=== PATIENT | female | born 1985 | race Caucasian/White ===

== ENCOUNTER 2017-05-19 13:57 | Outpatient (CLI) | payer OTHER | END 2017-05-19 13:58 | disposition home or self-care (01) | LOC: SC 13:57 | PROVIDERS: ATTEND Internal Medicine Pulmonary Disease | DX: G47.00 Insomnia, unspecified (principal); E66.9 Obesity, unspecified; Z68.34 Body mass index [BMI] 34.0-34.9, adult | CPT/HCPCS: 99203; 99212 ==

== ENCOUNTER 2017-06-11 21:24 | Outpatient (CLI) | payer OTHER | END 2017-06-11 21:25 | disposition home or self-care (01) | LOC: SC 21:24 | PROVIDERS: ATTEND Internal Medicine Pulmonary Disease | DX: G47.61 Periodic limb movement disorder (principal); R06.83 Snoring | CPT/HCPCS: 95810 ==

== ENCOUNTER 2017-07-29 09:29 | Outpatient (CLI) | payer OTHER | END 2017-07-29 09:30 | disposition home or self-care (01) | LOC: SC 09:29 | PROVIDERS: ATTEND Nurse Practitioner Family | DX: G47.61 Periodic limb movement disorder (principal); R06.83 Snoring | CPT/HCPCS: 99212; 99214 ==

== ENCOUNTER 2019-01-04 19:18 | Emergency (ER) | payer OTHER ==
[2019-01-04 19:25] VITALS: BP 127/72
--- NOTE | 2019-01-04 20:03 | ED Physician Documentation ---
PD HPI URI - Stated complaint Stated Complaint: COUGH - Chief complaint Chief Complaint: Resp - History obtained from History obtained from: Patient - History of Present Illness Timing - onset: Last night (Sick since last night with severe body aches, nonproductive cough, fevers and chills and runny nose and mild sore throat.) Review of Systems Constitutional: reports: Fever, Chills, Myalgias, Fatigue Nose: reports: Rhinorrhea / runny nose Throat: reports: Sore throat Respiratory: reports: Cough. denies: Dyspnea GI: denies: Abdominal Pain, Nausea, Vomiting PD PAST MEDICAL HISTORY - Past Medical History Past Medical History: No - Past Surgical History Past Surgical History: No - Present Medications Home Medications: Ambulatory Orders Medication Instructions Recorded Confirmed Benzonatate [Tessalon Perle] 100 - 200 mg PO TID PRN #30 capsule 01/04/19 Hydrocodone/Acetaminophen 1 - 2 each PO Q6H PRN #10 tablet 01/04/19 [Hydrocodon-Acetaminophen 5-325] Ibuprofen [Motrin] 800 mg PO Q8H PRN #30 tablet 01/04/19 Oseltamivir [Tamiflu] 75 mg PO BID #10 capsule 01/04/19 - Allergies Allergies/Adverse Reactions: Allergies Allergy/AdvReac Type Severity Reaction Status Date / Time No Known Drug Allergies Allergy Verified 01/04/19 19:24 - Social History Does the pt smoke?: Yes Smoking Status: Current every day smoker Does the pt drink ETOH?: No Does the pt have substance abuse?: No - Immunizations Immunizations are current?: No Immunizations: TDAP current <10years PD ED PE NORMAL - Vitals Vital signs reviewed: Yes - General General: Alert and oriented X 3, No acute distress - HEENT HEENT: Ears normal, Pharynx benign - Neck Neck: Supple, no meningeal sign, No bony TTP - Cardiac Cardiac: RRR, No murmur - Respiratory Respiratory: No respiratory distress, Clear bilaterally - Abdomen Abdomen: Non tender - Derm Derm: No rash - Neuro Neuro: Alert and oriented X 3 - Psych Psych: Normal mood, Normal affect Results - Vitals Vitals: Vital Signs - 24 hr 01/04/19 19:21 Temperature 37.2 C Heart Rate 89 Respiratory 16 Rate Blood Pressure 127/72 O2 Saturation 99 Oxygen O2 Source Room air PD MEDICAL DECISION MAKING - ED course ED course: This is a 33-year-old woman who has signs and symptoms of influenza. Given the low sensitivity of the nasal test and current outbreak I do not think confirmatory testing is necessary. Departure - Departure Disposition: 01 Home, Self Care Clinical Impression: Influenza Condition: Good Record reviewed to determine appropriate education?: Yes Instructions: ED Flu, Medication: Tamiflu (Oseltamivir) Prescriptions: Benzonatate [Tessalon Perle] 100 - 200 mg PO TID PRN #30 capsule PRN Reason: Cough Hydrocodone/Acetaminophen [Hydrocodon-Acetaminophen 5-325] 1 - 2 each PO Q6H PRN #10 tablet PRN Reason: pain Ibuprofen [Motrin] 800 mg PO Q8H PRN #30 tablet PRN Reason: PAIN &/OR FEVER Oseltamivir [Tamiflu] 75 mg PO BID #10 capsule Comments: Should be improving in 3-5 days, return if not or if worsening. Follow-up with your physician as needed. Forms: Activity restrictions
[2019-01-04] MEDS: IBUPROFEN 800 MG TABLET PO STA (20:07)
[2019-01-04] MEDS: OSELTAMIVIR 75 MG CAPSULE PO STA (20:07)
[2019-01-04] MEDS: HYDROcod/ACETAM 5/325 MG TABLET PO STA (20:07)
== END 2019-01-04 20:09 | disposition home or self-care (01) ==
LOC: ED 19:18
DX: J11.1 Influenza due to unidentified influenza virus with other respiratory manifestations (principal); F17.200 Nicotine dependence, unspecified, uncomplicated
CPT/HCPCS: 99283; A9270

== ENCOUNTER 2019-08-11 20:22 | Emergency (ER) | payer OTHER ==
[2019-08-11 20:29] VITALS: BP 129/64
--- NOTE | 2019-08-11 20:50 | ED Physician Documentation ---
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.) Similar symptoms before: Has not had sx before Recently seen: Not recently seen Review of Systems Constitutional: denies: Fever, Chills Nose: denies: Rhinorrhea / runny nose, Congestion Throat: denies: Sore throat Cardiac: denies: Chest pain / pressure Respiratory: denies: Cough GI: denies: Abdominal Pain, Nausea, Vomiting, Diarrhea : denies: Dysuria, Frequency Skin: denies: Rash, Lesions Neurologic: denies: Focal weakness, Numbness, Near syncope PD PAST MEDICAL HISTORY - Past Medical History Past Medical History: No Musculoskeletal: None - Past Surgical History Past Surgical History: No - Present Medications Home Medications: Ambulatory Orders Medication Instructions Recorded Confirmed Benzonatate [Tessalon Perle] 100 - 200 mg PO TID PRN #30 capsule 01/04/19 Hydrocodone/Acetaminophen 1 - 2 each PO Q6H PRN #10 tablet 01/04/19 [Hydrocodon-Acetaminophen 5-325] Ibuprofen [Motrin] 800 mg PO Q8H PRN #30 tablet 01/04/19 Oseltamivir [Tamiflu] 75 mg PO BID #10 capsule 01/04/19 Naproxen 500 mg PO BID #20 tablet 08/11/19 Tizanidine HCl 4 mg PO TID PRN #25 capsule 08/11/19 Tramadol HCl 50 mg PO Q6H PRN #20 tablet 08/11/19 - Allergies Allergies/Adverse Reactions: Allergies Allergy/AdvReac Type Severity Reaction Status Date / Time No Known Drug Allergies Allergy Verified 08/11/19 20:29 - Social History Does the pt smoke?: Yes Smoking Status: Current every day smoker Does the pt drink ETOH?: No Does the pt have substance abuse?: No - Immunizations Immunizations are current?: No Immunizations: TDAP current <10years - POLST Patient has POLST: No PD ED PE NORMAL - Vitals Vital signs reviewed: Yes - General General: Alert and oriented X 3, No acute distress, Well developed/nourished - Cardiac Cardiac: RRR, No murmur - Respiratory Respiratory: Clear bilaterally - Abdomen Abdomen: Soft, Non tender - Back Back: No CVA TTP - Derm Derm: Normal color, No rash - Neuro Neuro: Alert and oriented X 3, No motor deficit, No sensory deficit, Other (normal knee reflexes) Results - Vitals Vitals: Vital Signs - 24 hr 08/11/19 08/11/19 20:28 21:35 Temperature 35.8 C L Heart Rate 79 75 Respiratory 19 12 Rate Blood Pressure 129/64 129/64 O2 Saturation 100 100 Oxygen O2 Source Room air PD MEDICAL DECISION MAKING - ED course Complexity details: considered differential (no red flags, and seems muscular pain presume related to repetitive use at work. ), d/w patient Departure - Departure Disposition: 01 Home, Self Care Clinical Impression: Repetitive strain injury of lower back Qualifiers: Encounter type: initial encounter Qualified Code(s): S39.012A - Strain of muscle, fascia and tendon of lower back, initial encounter Condition: Stable Record reviewed to determine appropriate education?: Yes Instructions: ED Sprain Strain Lumbar Prescriptions: Naproxen 500 mg PO BID #20 tablet Tizanidine HCl 4 mg PO TID PRN #25 capsule PRN Reason: Spasms Tramadol HCl 50 mg PO Q6H PRN #20 tablet PRN Reason: Pain Comments: Heat and gentle stretching. Stretching and light aerobic like treadmill are fine. No repetitive bending or heavy lifting for a week or so. 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 Use naproxen anti-inflammatory twice daily for the next 7 to 10 days. Add tizanidine muscle relaxant 3-4 times a day for spasms and stiffness. Add Tylenol every the 6 hours if needed for pain and tramadol if needed for worse pain. Physical treatment such as heat and stretching as well as massage and chiropractic are fine and often helpful. Recheck if not improved over the next several days to week. Sometimes this will persist with some degree of soreness for 2 or 3 weeks or more. Follow-up with your primary care if not better over the next week though as other treatments can be added. Forms: Activity restrictions Discharge Date/Time: 08/11/19 21:36
[2019-08-11] MEDS ORDERED: METHOCARBAMOL 500 MG TABLET PO STA (21:16)
[2019-08-11] MEDS ORDERED: traMADol 50 MG TABLET PO STA (21:16)
[2019-08-11] MEDS ORDERED: CHERRY SYRUP 10 ML UDC PO ONE (21:16)
[2019-08-11] MEDS ORDERED: NAPROXEN 250 MG TABLET PO STA (21:16)
[2019-08-11] MEDS ORDERED: DEXAMETHASONE 10 MG/ML VIAL PO STA (21:16)
== END 2019-08-11 21:36 | disposition home or self-care (01) ==
LOC: ED 20:22
DX: S39.012A Strain of muscle, fascia and tendon of lower back, initial encounter (principal); F17.200 Nicotine dependence, unspecified, uncomplicated; X58.XXXA Exposure to other specified factors, initial encounter
CPT/HCPCS: 99283; 99284; A9270

== ENCOUNTER 2021-03-23 20:34 | Emergency (ER) | payer OTHER ==
--- OUTSIDE RECORDS SUMMARY | 2021-03-23 20:56 | EXTERNAL MEDICAL SUMMARY RPT | Continuity of Care Document ---
:1985 Demographics Phone Unavailable Preferred Language Unknown Marital Status Unknown Denominational Affiliation Unknown Race Unknown Ethnic Group Unknown Author Organization [place] Address [address] [phone] Phone Social History date description facility [phone]
--- NOTE | 2021-03-23 21:16 | ED Physician Documentation ---
PD HPI UPPER EXT INJURY - Stated complaint Stated Complaint: RT ARM PX & UNABLE TO MOVE PROPERLY - Chief complaint Chief Complaint: Ext Problem - History obtained from History obtained from: Patient - History of Present Illness Location: Right, Wrist - Additonal information Additional information: Developed medial right wrist pain today, no specific injury. It hurts to move. Review of Systems Constitutional: reports: Reviewed and negative Eyes: reports: Reviewed and negative Ears: denies: Loss of hearing, Ear pain Nose: denies: Rhinorrhea / runny nose, Congestion PD PAST MEDICAL HISTORY - Past Medical History Musculoskeletal: None - Past Surgical History Past Surgical History: No - Allergies Allergies/Adverse Reactions: Allergies Allergy/AdvReac Type Severity Reaction Status Date / Time No Known Drug Allergies Allergy Verified 03/23/21 20:39 - Social History Does the pt smoke?: Yes Smoking Status: Current every day smoker Does the pt drink ETOH?: No Does the pt have substance abuse?: No - Immunizations Immunizations are current?: No Immunizations: TDAP current <10years - POLST Patient has POLST: No PD ED PE NORMAL - Vitals Vital signs reviewed: Yes - General General: Alert and oriented X 3, No acute distress - HEENT HEENT: PERRL, EOMI - Extremities Extremities: Other (Tender along the ulnar side of the wrist and pain with eversion of the wrist. Flexion and extension is relatively painless. No tenderness at the elbow.) - Neuro Neuro: Alert and oriented X 3, Normal speech Results - Vitals Vitals: Vital Signs - 24 hr 03/23/21 20:41 Temperature 37.0 C Heart Rate 70 Respiratory 18 Rate Blood Pressure 140/82 H O2 Saturation 100 Oxygen O2 Source Room air PD MEDICAL DECISION MAKING - ED course ED course: This young lady has a ulnar side tendinitis of the right wrist. She is placed in a splint for comfort and advised on rest and ice. She declined prescription pain medication. Departure - Departure Disposition: 01 Home, Self Care Clinical Impression: Right wrist tendinitis Condition: Good Record reviewed to determine appropriate education?: Yes Instructions: Tendonitis and Tenosynovitis Comments: Ibuprofen as needed for pain, elevate. Keep the splint on for comfort. Recheck with your doc in 1 week Forms: Activity restrictions
[2021-03-23 21:29] VITALS: BP 126/69
== END 2021-03-23 21:30 | disposition home or self-care (01) ==
LOC: ED 20:34
DX: M77.8 Other enthesopathies, not elsewhere classified (principal); M25.531 Pain in right wrist; F17.200 Nicotine dependence, unspecified, uncomplicated
CPT/HCPCS: 99282; 99283

== ENCOUNTER 2021-06-18 19:29 | Emergency (ER) | payer OTHER ==
[2021-06-18] MEDS ORDERED: KETOROLAC 15 MG/ML VIAL IM STA (19:46)
[2021-06-18] MEDS ORDERED: HYDROcod/ACETAM 5/325 MG TABLET PO STA (19:46)
--- NOTE | 2021-06-18 19:48 | ED Physician Documentation ---
PD HPI BACK PAIN - Stated complaint Stated Complaint: BACK PAIN - Chief complaint Chief Complaint: Back Pain - History obtained from History obtained from: Patient - Additional information Additional information: 4 days of left low back pain radiating into the left buttock with occasional numbness of the left leg. No saddle anesthesia, incontinence, or fevers. No IV drug use. Review of Systems Ten Systems: 10 systems reviewed and negative Constitutional: reports: Reviewed and negative PD PAST MEDICAL HISTORY - Past Medical History Past Medical History: Yes Musculoskeletal: None, Chronic back pain - Past Surgical History Past Surgical History: No - Present Medications Home Medications: Ambulatory Orders Medication Instructions Recorded Confirmed Cyclobenzaprine [Flexeril] 10 mg PO TID PRN #20 tablet 06/18/21 HYDROcod/ACETAM 5/325 [[place] 5/325] 1 - 2 tab PO Q6H PRN #15 tablet 06/18/21 - Allergies Allergies/Adverse Reactions: Allergies Allergy/AdvReac Type Severity Reaction Status Date / Time No Known Drug Allergies Allergy Verified 06/18/21 19:31 - Social History Does the pt smoke?: No Smoking Status: Never smoker Does the pt drink ETOH?: No Does the pt have substance abuse?: No - Immunizations Immunizations are current?: Yes Immunizations: TDAP current <10years - POLST Patient has POLST: No PD ED PE NORMAL - Vitals Vital signs reviewed: Yes - General General: Alert and oriented X 3, No acute distress - Abdomen Abdomen: Soft, Non tender - Back Back: No spinal TTP (Muscular tenderness of the left low back, no midline spinal tenderness), Other (The patient has equal and normal Achilles and patellar reflexes bilaterally. Normal sensation in all areas of the legs. Patient denies saddle anesthesia. Normal strength in flexion-extension at the ankles, knees, and flexion of the hips.) - Extremities Extremities: No edema, No calf tenderness / cord - Neuro Neuro: Alert and oriented X 3, Normal speech Results - Vitals Vitals: Vital Signs - 24 hr 06/18/21 19:32 Temperature 36.5 C Heart Rate 82 Respiratory 16 Rate Blood Pressure 142/73 H O2 Saturation 98 Oxygen O2 Source Room air PD MEDICAL DECISION MAKING - ED course ED course: This patient has seemingly uncomplicated musculoskeletal back pain. The patient has no "red flags." Specifically denies IV drug use, fevers, incontinence, saddle anesthesia. Spinal epidural abscess was considered, given that the patient has no fever, is not diabetic, has no spinal tenderness, does not use IV drugs, and has no bilateral neurologic symptoms, the diagnosis of spinal epidural abscess is considered exceedingly unlikely. I am prescribing a short course of short-acting opioid pain medication for this patient. 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 I have discussed that the opioids are for short term therapy only, and will not be refilled from the ED. Departure - Departure Disposition: 01 Home, Self Care Clinical Impression: Sciatica Qualifiers: Laterality: left Qualified Code(s): M54.32 - Sciatica, left side Condition: Good Record reviewed to determine appropriate education?: Yes Instructions: ED Sciatica Prescriptions: Cyclobenzaprine [Flexeril] 10 mg PO TID PRN #20 tablet PRN Reason: Spasms HYDROcod/ACETAM 5/325 [[place] 5/325] 1 - 2 tab PO Q6H PRN #15 tablet PRN Reason: Pain Comments: Call your doctor to arrange a follow-up appointment, make the next available appointment. In the interim, return anytime if worse or if new symptoms develop. I am prescribing a short course of narcotic pain medication for you. These are potentially dangerous and addictive medications that should be used carefully. These medications may constipate you. Take an [id number] stool softener (docusate) twice daily with plenty of water while taking these medications. If you go 24 hours without a bowel movement, take [id number] miralax, per package instructions. Do not drink or drive while taking these medications. If you received narcotic or sedating medications while in the emergency department, do not drive for 24 hours. Store this medication in a safe, secure place and out of reach of children. It is a violation of federal law to give or sell this medication to another person or to use in a manner other than prescribed. The ED will not refill narcotic prescriptions, including prescriptions lost or stolen. To dispose of unwanted medications: 1. [facility] at [address] [facility] in [place] has a medication drop box. They accept prescription medications (in pill form) Friday through Friday 9:00 a.m. to 5:00 p.m. 2. The [facility] accepts prescription medications (in pill form only) for disposal year round. Call for more information. 3. Contact the [facility] for the next [facility] sponsored prescription drug collection event. , [phone], or [phone]; Note that many narcotic pain relievers also contain Tylenol/acetaminophen. Please ensure that your total dose of acetaminophen from all sources does not exceed 3 g (3000 mg) per day. Forms: Activity restrictions
[2021-06-18 20:03] VITALS: BP 131/81
== END 2021-06-18 20:07 | disposition home or self-care (01) ==
LOC: ED 19:29
DX: M54.42 Lumbago with sciatica, left side (principal)
CPT/HCPCS: 96372; 99283; 99284; A9270

== ENCOUNTER 2021-07-27 13:25 | Emergency (ER) | payer OTHER ==
[2021-07-27 13:52] VITALS: BP 132/74
[2021-07-27] MEDS ORDERED: CYCLOBENZAPRINE 10 MG TABLET PO STA (14:04)
[2021-07-27] MEDS ORDERED: HYDROcod/ACETAM 5/325 MG TABLET PO STA (14:04)
--- NOTE | 2021-07-27 14:06 | ED Physician Documentation ---
PD HPI BACK PAIN - Stated complaint Stated Complaint: LOWER BACK PX - Chief complaint Chief Complaint: Back Pain - History obtained from History obtained from: Patient - Additional information Additional information: 2 months of left-sided low back pain radiating towards the left hip. She denies weakness, numbness, tingling, saddle anesthesia, fevers, IV drug use. No weakness. Seen here and got relief from hydrocodone and Flexeril. [place] Review of Systems Constitutional: reports: Reviewed and negative Eyes: reports: Reviewed and negative Ears: reports: Reviewed and negative Nose: reports: Reviewed and negative Throat: reports: Reviewed and negative PD PAST MEDICAL HISTORY - Past Medical History Musculoskeletal: None, Chronic back pain - Past Surgical History Past Surgical History: No - Present Medications Home Medications: Ambulatory Orders Medication Instructions Recorded Confirmed Cyclobenzaprine [Flexeril] 10 mg PO TID PRN #20 tablet 06/18/21 HYDROcod/ACETAM 5/325 [[place] 5/325] 1 - 2 tab PO Q6H PRN #15 tablet 06/18/21 Cyclobenzaprine [Flexeril] 10 mg PO TID PRN #20 tablet 07/27/21 HYDROcod/ACETAM 5/325 [[place] 5/325] 1 - 2 tab PO Q6H PRN #15 tablet 07/27/21 - Allergies Allergies/Adverse Reactions: Allergies Allergy/AdvReac Type Severity Reaction Status Date / Time No Known Drug Allergies Allergy Verified 07/27/21 13:52 - Social History Does the pt smoke?: No Smoking Status: Never smoker Does the pt drink ETOH?: No Does the pt have substance abuse?: No - Immunizations Immunizations are current?: Yes Immunizations: TDAP current <10years - POLST Patient has POLST: No PD ED PE NORMAL - Vitals Vital signs reviewed: Yes - General General: Alert and oriented X 3, No acute distress - HEENT HEENT: PERRL, EOMI - Neck Neck: Supple, no meningeal sign, No bony TTP - Extremities Extremities: Other (Tender to the left sciatic notch, diminished almost absent left L4/L5 reflex, otherwise strength and sensation are symmetric throughout the lower extremities.) - Neuro Neuro: Alert and oriented X 3, Normal speech Results - Vitals Vitals: Vital Signs - 24 hr 07/27/21 13:48 Temperature 36.6 C Heart Rate 88 Respiratory 15 Rate Blood Pressure 132/74 H O2 Saturation 99 Oxygen O2 Source Room air PD MEDICAL DECISION MAKING - ED course ED course: This patient has seemingly uncomplicated musculoskeletal back pain. The patient has no "red flags." Specifically denies IV drug use, fevers, incontinence, saddle anesthesia. Spinal epidural abscess was considered, given that the patient has no fever, is not diabetic, has no spinal tenderness, does not use IV drugs, and has no bilateral neurologic symptoms, the diagnosis of spinal epidu ral abscess is considered exceedingly unlikely. I am prescribing a short course of short-acting opioid pain medication for this patient. 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 I have discussed that the opioids are for short term therapy only, and will not be refilled from the ED. Departure - Departure Disposition: 01 Home, Self Care Clinical Impression: Sciatica Qualifiers: Laterality: left Qualified Code(s): M54.32 - Sciatica, left side Condition: Good Record reviewed to determine appropriate education?: Yes Instructions: ED Sciatica Prescriptions: Cyclobenzaprine [Flexeril] 10 mg PO TID PRN #20 tablet PRN Reason: Spasms HYDROcod/ACETAM 5/325 [[place] 5/325] 1 - 2 tab PO Q6H PRN #15 tablet PRN Reason: Pain Comments: As discussed based on exam you have a radiculopathy of the left L4-L5 nerve root, likely due to disc herniation at that level. [place]. Given how long its been going on, you do fit the criteria for MRI, but she may need to go through physical therapy first. Return for new or worsening symptoms. Prescription sent electronically to [facility] pharmacy. I am prescribing a short course of narcotic pain medication for you. These are potentially dangerous and addictive medications that should be used carefully. These medications may constipate you. Take an jbeq-lct-vyipyxz stool softener (docusate) twice daily with plenty of water while taking these medications. If you go 24 hours without a bowel movement, take nsfw-ecp-fdttnry miralax, per package instructions. Do not drink or drive while taking these medications. If you received narcotic or sedating medications while in the emergency department, do not drive for 24 hours. Store this medication in a safe, secure place and out of reach of children. It is a violation of federal law to give or sell this medication to another person or to use in a manner other than prescribed. The ED will not refill narcotic prescriptions, including prescriptions lost or stolen. To dispose of unwanted medications: 1. [facility] at [address] in [place] has a medication drop box. They accept prescription medications (in pill form) Friday through Friday 9:00 a.m. to 5:00 p.m. 2. The [facility] accepts prescription medications (in pill form only) for disposal year round. Call for more information. 3. Contact the [facility] for the next [facility] sponsored prescription drug collection event. , [phone], or [phone]; Note that many narcotic pain relievers also contain Tylenol/acetaminophen. Please ensure that your total dose of acetaminophen from all sources does not exceed 3 g (3000 mg) per day. Forms: Activity restrictions
== END 2021-07-27 14:15 | disposition home or self-care (01) ==
LOC: ED 13:25
DX: M54.32 Sciatica, left side (principal)
CPT/HCPCS: 99282; 99283; A9270

== ENCOUNTER 2022-01-22 15:43 | Emergency (ER) | payer OTHER ==
[2022-01-22 15:50] VITALS: BP 132/73
[2022-01-22] MEDS ORDERED: oxyCODONE 5 MG TABLET PO STA (16:46)
--- NOTE | 2022-01-22 16:47 | ED Physician Documentation ---
PD HPI BACK PAIN - Stated complaint Stated Complaint: LOW BACK PX - Chief complaint Chief Complaint: Back Pain - Additional information Additional information: Patient is 36-year-old female presenting to the emergency department with left low back pain. Endorses for chronic back pain at home worse x2-3 days. Reports works on her feet on the [employer]. Reports that she is not been taking any medication but does have some muscle relaxers that she occasionally uses for sleep. Denies any fever, chills, trauma, saddle paresthesia, bowel or bladder incontinence, lower extremity weakness. Review of Systems Unable to obtain: Unresponsive Ten Systems: 10 systems reviewed and negative Constitutional: denies: Fever Eyes: denies: Loss of vision Ears: denies: Loss of hearing Nose: denies: Rhinorrhea / runny nose Throat: denies: Dental pain / toothache Cardiac: denies: Chest pain / pressure GI: denies: Abdominal Pain : denies: Dysuria Musculoskeletal: reports: Back pain PD PAST MEDICAL HISTORY - Past Medical History Musculoskeletal: None, Chronic back pain - Past Surgical History Past Surgical History: No - Present Medications Home Medications: Ambulatory Orders Medication Instructions Recorded Confirmed Cyclobenzaprine [Flexeril] 10 mg PO TID PRN #20 tablet 06/18/21 HYDROcod/ACETAM 5/325 [Gary 5/325] 1 - 2 tab PO Q6H PRN #15 tablet 06/18/21 Cyclobenzaprine [Flexeril] 10 mg PO TID PRN #20 tablet 07/27/21 HYDROcod/ACETAM 5/325 [Gary 5/325] 1 - 2 tab PO Q6H PRN #15 tablet 07/27/21 Acetaminophen [Tylenol] 650 mg PO Q6H PRN #30 tablet 01/22/22 Ibuprofen [Motrin] 800 mg PO Q8H PRN #30 tablet 01/22/22 Lidocaine Patch 5% [Lidoderm Patch] 1 patch TOP DAILY PRN #10 patch 01/22/22 methocarbamoL [Robaxin] 500 mg PO Q6H PRN #20 tablet 01/22/22 - Allergies Allergies/Adverse Reactions: Allergies Allergy/AdvReac Type Severity Reaction Status Date / Time No Known Drug Allergies Allergy Verified 01/22/22 15:50 - Social History Does the pt smoke?: No Smoking Status: Never smoker Does the pt drink ETOH?: No Does the pt have substance abuse?: No - Immunizations Immunizations are current?: Yes Immunizations: TDAP current <10years - POLST Patient has POLST: No PD ED PE NORMAL - General General: Alert and oriented X 3 - HEENT HEENT: Atraumatic - Neck Neck: Supple, no meningeal sign - Respiratory Respiratory: No respiratory distress - Back Back: No CVA TTP, No spinal TTP, Other (Left low paraspinal muscle tenderness to palpation) Results - Vitals Vitals: Vital Signs - 24 hr 01/22/22 15:47 Temperature 35.9 C L Heart Rate 82 Respiratory 16 Rate Blood Pressure 132/73 H O2 Saturation 99 Oxygen O2 Source Room air PD MEDICAL DECISION MAKING - ED course ED course: Patient presents with acute on chronic low back pain. Afebrile, hemodynamically stable. No red flags in history. Patient noted to be able to ambulate in the department with ease. No spinal tenderness to palpation but some left lower Paraspinal muscle tenderness to palpation. Given medication for symptomatic management here in the department. Will send medications for symptomatic management to her preferred pharmacy. Encourage careful follow-up with primary care or return to the emergency department for new or worsening symptoms Departure - Departure Disposition: 01 Home, Self Care Clinical Impression: Back pain Instructions: ED Back Care Tips Prescriptions: Lidocaine Patch 5% [Lidoderm Patch] 1 patch TOP DAILY PRN #10 patch PRN Reason: pain Ibuprofen [Motrin] 800 mg PO Q8H PRN #30 tablet PRN Reason: PAIN &/OR FEVER methocarbamoL [Robaxin] 500 mg PO Q6H PRN #20 tablet PRN Reason: muscle spasm Acetaminophen [Tylenol] 650 mg PO Q6H PRN #30 tablet PRN Reason: PRN PAIN &/OR FEVER Comments: Thank you for allowing us to care for you today at [facility]. [facility]. Please drink plenty of fluids. I recommend activity as tolerated. Complete inactivity can make back pain worse. Please follow-up with your primary care doctor soon as able. If at any time you have any new or worsening symptoms such as worsening pain, fever, numbness around the anus or genitalia, loss or bowel or bladder control or weakness in your legs, please don't hesitate to return. Discharge Date/Time: 01/22/22 17:05
== END 2022-01-22 17:05 | disposition home or self-care (01) ==
LOC: ED 15:43
DX: M54.50 Low back pain, unspecified (principal)
CPT/HCPCS: 99283; A9270

== ENCOUNTER 2022-03-04 15:43 | Emergency (ER) | payer OTHER ==
[2022-03-04 15:57] VITALS: BP 131/78
--- NOTE | 2022-03-04 16:14 | ED Physician Documentation ---
History of Present Illness - Stated complaint Stated Complaint: ABD PX,NAUSEA,DIZZINESS - Chief complaint Chief Complaint: Abd Pain - History obtained from History obtained from: Patient - History of Present Illness Timing: How many days ago (4) Pain level max: 5 Pain level now: 5 - Additonal information Additional information: Patient is a 37-year-old female who presents to the emergency department complaint of bilateral flank pain. This is been ongoing for the past several days. Has had nausea as well. She states similar to prior UTIs. She states she normally does not have dysuria and frequency with her UTIs, rather she states she has nausea and flank pain. Nothing seems to make it better or worse. No fevers. No chills. Denies any possibility of . Is not breast- feeding. Review of Systems Constitutional: denies: Fever, Chills Throat: denies: Sore throat Cardiac: denies: Chest pain / pressure, Palpitations Respiratory: denies: Dyspnea, Cough GI: denies: Vomiting, Diarrhea, Hematemesis, Bloody / black stool : denies: Dysuria, Frequency, Hesitancy, Now EGA Skin: denies: Rash Musculoskeletal: denies: Neck pain, Back pain PD PAST MEDICAL HISTORY - Past Medical History Past Medical History: Yes Musculoskeletal: None, Chronic back pain - Past Surgical History Past Surgical History: No - Present Medications Home Medications: Ambulatory Orders Medication Instructions Recorded Confirmed Cyclobenzaprine [Flexeril] 10 mg PO TID PRN #20 tablet 06/18/21 HYDROcod/ACETAM 5/325 [[place] 5/325] 1 - 2 tab PO Q6H PRN #15 tablet 06/18/21 Cyclobenzaprine [Flexeril] 10 mg PO TID PRN #20 tablet 07/27/21 HYDROcod/ACETAM 5/325 [[place] 5/325] 1 - 2 tab PO Q6H PRN #15 tablet 07/27/21 Acetaminophen [Tylenol] 650 mg PO Q6H PRN #30 tablet 01/22/22 Ibuprofen [Motrin] 800 mg PO Q8H PRN #30 tablet 01/22/22 Lidocaine Patch 5% [Lidoderm Patch] 1 patch TOP DAILY PRN #10 patch 01/22/22 methocarbamoL [Robaxin] 500 mg PO Q6H PRN #20 tablet 01/22/22 HYDROcod/ACETAM 5/325 [[place] 5/325] 1 - 2 ea PO Q6H PRN #14 tablet 03/04/22 Ondansetron Odt [Zofran] 4 mg TL Q6H PRN #10 tablet 03/04/22 - Allergies Allergies/Adverse Reactions: Allergies Allergy/AdvReac Type Severity Reaction Status Date / Time No Known Drug Allergies Allergy Verified 03/04/22 15:57 - Living Situation Living Arrangement: reports: At home - Social History Does the pt smoke?: No Smoking Status: Never smoker Does the pt drink ETOH?: No Does the pt have substance abuse?: No - Immunizations Immunizations are current?: Yes Immunizations: TDAP current <10years - POLST Patient has POLST: No PD ED PE NORMAL - Vitals Vital signs reviewed: Yes - General General: Alert and oriented X 3, No acute distress - HEENT HEENT: PERRL, Moist mucous membranes, Pharynx benign - Neck Neck: Supple, no meningeal sign - Cardiac Cardiac: RRR - Respiratory Respiratory: No respiratory distress, Clear bilaterally - Abdomen Abdomen: Soft, Non tender, Non distended - Back Back: No CVA TTP, No spinal TTP - Derm Derm: Warm and dry, No rash - Extremities Extremities: No edema, No calf tenderness / cord - Neuro Neuro: Alert and oriented X 3, No motor deficit, No sensory deficit, Other (Normal bilateral lower extremity patellar and ankle jerk reflexes. Normal great toe extension bilaterally. no saddle anesthesia) - Psych Psych: Normal mood, Normal affect Results - Vitals Vitals: Vital Signs - 24 hr 03/04/22 03/04/22 03/04/22 15:54 16:09 18:29 Temperature 36.3 C L 37.1 C Heart Rate 78 75 Respiratory 14 15 15 Rate Blood Pressure 131/78 H O2 Saturation 100 97 97 Oxygen O2 Source Room air - Labs Labs: Laboratory Tests 03/04/22 03/04/22 03/04/22 16:19 16:19 16:21 WBC 6.7 RBC 4.08 L Hgb 9.8 L Hct 31.8 L MCV 77.9 L MCH 24.0 L MCHC 30.8 L RDW 16.5 H Plt Count 288 MPV 11.8 H Neut # (Auto) 4.3 Lymph # (Auto) 1.9 Juncos # (Auto) 0.4 Eos # (Auto) 0.1 Baso # (Auto) 0.1 Absolute Nucleated RBC 0.00 Nucleated RBC % 0.0 Sodium 139 Potassium 3.9 Chloride 104 Carbon Dioxide 26 Anion Gap 9.0 BUN 11 Creatinine 0.8 Estimated GFR (MDRD) 80 L Glucose 95 Calcium 8.9 Total Bilirubin 0.5 AST 15 ALT 11 Alkaline Phosphatase 55 Total Protein 6.9 Albumin 4.0 Globulin 2.9 Albumin/Globulin Ratio 1.4 Lipase 39 Urine Color YELLOW Urine Clarity HAZY Urine pH 6.5 Ur Specific Howard 1.025 Urine Protein NEGATIVE Urine Glucose (UA) NEGATIVE Urine Ketones NEGATIVE Urine Occult Blood LARGE H Urine Nitrite NEGATIVE Urine Bilirubin NEGATIVE Urine Urobilinogen 0.2 (NORMAL) Ur Leukocyte Esterase NEGATIVE Urine RBC TNTC H Urine WBC 0-3 Ur Squamous Epith Cells MOD Squamous H Urine Bacteria Few Ur Microscopic Review INDICATED Urine Culture Comments NOT INDICATED Urine HCG, Qual NEGATIVE - Rads (name of study) CT abd/pelvis Radiology: Final report received, EMP read contemporaneously, See rad report (No acute abnormality) PD MEDICAL DECISION MAKING - ED course Complexity details: reviewed results, re-evaluated patient, considered differential, d/w patient ED course: Unclear etiology of the patient symptoms. No significant lab abnormalities. No significant radiographic abnormalities. We will trial on pain medication for home and have her follow-up with her doctor for further care. No evidence of cauda equina, epidural abscess. I am prescribing a short course of short-acting opioid pain medication for this patient. I have reviewed the patients [employer]NA[employer] and no concerning findings were noted. I have discussed that the opioids are for short term therapy only, and will not be refilled from the ED. Patient counseled regarding signs and symptoms for which I believe and urgent re- evaluation would be necessary. Patient with good understanding of and agreement to plan and is comfortable going home at this time This document was made in part using voice recognition software. While efforts are made to proofread this document, sound alike and grammatical errors may occur. Departure - Departure Disposition: 01 Home, Self Care Clinical Impression: Flank pain Condition: Good Instructions: ED Abdominal Pain Female Non-Specific Abdominal Pain Follow-Up: your,doctor in 1 week [Other] Prescriptions: HYDROcod/ACETAM 5/325 [[place] 5/325] 1 - 2 ea PO Q6H PRN #14 tablet PRN Reason: Pain Ondansetron Odt [Zofran] 4 mg TL Q6H PRN #10 tablet PRN Reason: Nausea / Vomiting Comments: Please follow-up with your doctor for further care. Return if you worsen. The cause of your symptoms is unclear today. You do have mild anemia, this is li opal related to your iron deficiency. You can discuss with your doctor iron infusions to help with this. Your prescriptions were sent to the [facility] pharmacy. I am prescribing a short course of narcotic pain medication for you. These are potentially dangerous and addictive medications that should be used carefully. These medications may constipate you. Take an fxsj-yuc-porabxo stool softener (docusate) twice daily with plenty of water while taking these medications. If you go 24 hours without a bowel movement, take qycc-lbf-edneenj miralax, per package instructions. Do not drink or drive while taking these medications. If you received narcotic or sedating medications while in the emergency department, do not drive for 24 hours. Store this medication in a safe, secure place and out of reach of children. It is a violation of federal law to give or sell this medication to another person or to use in a manner other than prescribed. The ED will not refill narcotic prescriptions, including prescriptions lost or stolen. To dispose of unwanted medications: 1. [facility] at [address] [place] [address] in [place] has a medication drop box. They accept prescription medications (in pill form) Friday through Friday 9:00 a.m. to 5:00 p.m. 2. The [facility] Police Department accepts prescription medications (in pill form only) for disposal year round. Call for more information. 3. Contact the [facility] for the next [facility] sponsored prescription drug collection event. , [id number], or [phone]; Discharge Date/Time: 03/04/22 18:31
[2022-03-04 16:25] LABS: BASOPHILS # (AUTO) 0.1 10^3/uL (0.0-0.1); BASOPHILS % (AUTO) 0.9 %; EOSINOPHILS # (AUTO) 0.1 10^3/uL (0.0-0.7); EOSINOPHILS % (AUTO) 1.6 %; HCT - HEMATOCRIT 31.8 % (37.0-47.0); HGB - HEMOGLOBIN 9.8 g/dL (12.0-16.0); LYMPHOCYTES # (AUTO) 1.9 10^3/uL (1.5-3.5); LYMPHOCYTES % (AUTO) 28.1 %; MEAN CORPUSCULAR HGB CONC 30.8 g/dL (32.0-36.0); MEAN CORPUSCULAR VOLUME 77.9 fL (81.0-99.0); MEAN PLATELET VOLUME 11.8 fL (7.9-10.8); MONOCYTES # (AUTO) 0.4 10^3/uL (0.0-1.0); MONOCYTES % (AUTO) 5.4 %; NEUTROPHILS # (AUTO) 4.3 10^3/uL (1.5-6.6); NEUTROPHILS % (AUTO) 63.7 %; PLT - PLATELET COUNT 288 10^3/uL (130-450); RED BLOOD COUNT 4.08 10^6/uL (4.20-5.40); RED CELL DISTRIBUTION WIDTH 16.5 % (12.0-15.0); WHITE BLOOD COUNT 6.7 x10^3/uL (4.8-10.8)
[2022-03-04 16:29] LABS: BILIRUBIN,URINE NEGATIVE (NEGATIVE); GLUCOSE, URINE (UA) NEGATIVE (NEGATIVE); KETONES,URINE (UA) NEGATIVE (NEGATIVE); LEUKOCYTE ESTERASE, URINE NEGATIVE (NEGATIVE); NITRITE,URINE NEGATIVE (NEGATIVE); OCCULT BLOOD,URINE LARGE (NEGATIVE); PH,URINE 6.5 PH (5.0-7.5); PROTEIN,URINE NEGATIVE (NEGATIVE); UROBILINOGEN,URINE 0.2 (NORMAL) E.U./dL (NORMAL)
[2022-03-04 16:30] LABS: CLARITY,URINE HAZY (CLEAR); HCG UR QUAL NEGATIVE
[2022-03-04 16:37] LABS: ALBUMIN/GLOBULIN RATIO 1.4 (1.0-2.2); BILIRUBIN,TOTAL 0.5 mg/dL (0.2-1.0); CALCIUM 8.9 mg/dL (8.5-10.3); CREATININE 0.8 mg/dL (0.4-1.0); POTASSIUM 3.9 mmol/L (3.5-5.0); TOTAL PROTEIN 6.9 g/dL (6.7-8.2)
[2022-03-04 16:38] LABS: BACTERIA,URINE Few /HPF (None Seen); RBC,URINE TNTC /HPF (0-5); SQUAMOUS EPITHELIAL CELL,UR MOD Squamous (<= Few); WBC,URINE 0-3 /HPF (0-5)
[2022-03-04] MEDS ORDERED: IOVERSOL 320 100 ML VIAL IVP ONE ×2 (17:28→17:51)
--- NOTE | 2022-03-04 18:15 | CT Report ---
PROCEDURE: Abdomen/Pelvis W INDICATIONS: B flank pain CONTRAST: IV CONTRAST: Optiray 320 ml: 100 PO CONTRAST: *NO PO CONTRAST TECHNIQUE: After the administration of contrast, 5 mm thick sections acquired from the diaphragms to the sym physis. 5 mm thick coronal and sagittal reformats were acquired. For radiation dose reduction, the following was used: automated exposure control, adjustment of mA and/or kV according to patient size . COMPARISON: None. FINDINGS: Image quality: Excellent. ABDOMEN: Lung bases: Lung bases are clear. Heart size is normal. Solid organs: Liver and spleen are normal in size and enhancement. Gallbladder is normal Biliary s ystem is non dilated. Pancreas enhances normally. No adrenal nodules. Kidneys demonstrate normal s ize and enhancement, without hydronephrosis. Peritoneum and bowel: Bowel loops demonstrate normal wall thickness and caliber. No free fluid or a ir. Nodes and vessels: No retroperitoneal or mesenteric adenopathy by size criteria. Aorta and inferior vena cava are normal in size. Miscellaneous: No ventral hernias. PELVIS: Genitourinary: Bladder wall thickness is normal. Miscellaneous: No inguinal hernias or adenopathy. Bones: No suspicious bony lesions. No vertebral body compression fractures. IMPRESSION: No acute abdominal or pelvic abnormality. Reviewed by: Fortunato Kim on 03/04/2022 6:14 PM PDT Approved by: Fortunato Kim on 03/04/2022 6:14 PM PDT Station ID: [id number]
== END 2022-03-04 18:31 | disposition home or self-care (01) ==
LOC: ED 15:43
DX: R10.9 Unspecified abdominal pain (principal); D64.9 Anemia, unspecified
CPT/HCPCS: 36415; 74177; 80053; 81001; 81025; 83690; 85025; 99284; Q9967; 81003; 87086

== ENCOUNTER 2022-05-26 21:36 | Emergency (ER) | payer OTHER ==
--- NOTE | 2022-05-26 22:31 | ED Physician Documentation ---
PD HPI FEMALE - Stated complaint Stated Complaint: FEMALE - Chief complaint Chief Complaint: General - History obtained from History obtained from: Patient - History of Present Illness Timing - onset: Today Timing - details: Abrupt onset Associated symptoms: No: Fever Contributing factors: No: Similar symptoms before: Diagnosis (hemorrhoids) Recently seen: Other (T+R last month from this ED for unrelated c/o (dental pain)) - Additional information Additional information: per patient, "my hemorrhoids are flared causing me a lot of pain". She c/o perianal pain since earlier today, onset was immediately following a hard BM. She says she has been diagnosed with hemorrhoids in the past with similar pain associated with them. Review of Systems GI: denies: Abdominal Pain : denies: Now EGA PD PAST MEDICAL HISTORY - Past Medical History Past Medical History: Yes Musculoskeletal: None, Chronic back pain - Past Surgical History Past Surgical History: No - Present Medications Home Medications: Ambulatory Orders Medication Instructions Recorded Confirmed Amoxicillin 500 mg PO TID #30 cap 05/04/22 Oxycodone HCl/Acetaminophen 1 - 2 each PO Q6H PRN #14 tablet 05/04/22 [Percocet 5-325 mg Tablet] Hydrocortisone/Pramoxine 1 applic RC BID #10 gm 05/26/22 [Proctofoam-Hc Foam] traMADol [Ultram] 50 mg PO Q4-6H PRN #14 tablet 05/26/22 - Allergies Allergies/Adverse Reactions: Allergies Allergy/AdvReac Type Severity Reaction Status Date / Time No Known Drug Allergies Allergy Verified 05/26/22 21:43 - Social History Does the pt smoke?: No Smoking Status: Never smoker Does the pt drink ETOH?: No Does the pt have substance abuse?: No - Immunizations Immunizations are current?: Yes Immunizations: TDAP current <10years - POLST Patient has POLST: No PD ED PE NORMAL - Vitals Vital signs reviewed: Yes - General General: Alert and oriented X 3, No acute distress, Well developed/nourished - Abdomen Abdomen: Soft, Non tender PD ED PE EXPANDED - Rectal Rectal: Hemorrhoid (small, firm, tender external hemorrhoids without discoloration ) Results - Vitals Vitals: Oxygen O2 Source Room air PD MEDICAL DECISION MAKING - ED course Complexity details: considered differential, d/w patient ED course: c/o hemorrhoid pain and there are small but tender hemorrhoids noted on exam. patient says tramadol has been effective in the past for her pain. she is prescribed tramadol and proctofoam, advised to follow up with PMD Departure - Departure Disposition: Home, Self Care Clinical Impression: Hemorrhoids Qualifiers: Hemorrhoid type: unspecified Qualified Code(s): K64.9 - Unspecified hemorrhoids Condition: Good Instructions: ED Hemorrhoids Prescriptions: Hydrocortisone/Pramoxine [Proctofoam-Hc Foam] 1 applic RC BID #10 gm traMADol [Ultram] 50 mg PO Q4-6H PRN #14 tablet PRN Reason: Pain Discharge Date/Time: 05/26/22 22:58
[2022-05-26] MEDS ORDERED: HYDROCORTISONE 25 MG SUPPOSITORY PR STA (22:46)
[2022-05-26] MEDS ORDERED: traMADol 50 MG TABLET PO STA (22:53)
[2022-05-26 22:58] VITALS: BP 122/70
== END 2022-05-26 22:58 | disposition home or self-care (01) ==
LOC: ED 21:36
DX: K64.9 Unspecified hemorrhoids (principal)
CPT/HCPCS: 99282; 99283; A9270; J3490

== ENCOUNTER 2022-11-09 16:08 | Emergency (ER) | payer OTHER ==
[2022-11-09 16:15] VITALS: BP 159/74
--- NOTE | 2022-11-09 16:29 | ED Physician Documentation ---
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 Has never been on nitroglycerin or diltiazem. Presents with pain exacerbation related to same. Review of Systems Constitutional: reports: Reviewed and negative Cardiac: reports: Reviewed and negative Respiratory: reports: Reviewed and negative PD PAST MEDICAL HISTORY - Past Medical History Musculoskeletal: None, Chronic back pain - Past Surgical History Past Surgical History: No - Present Medications Home Medications: Ambulatory Orders Medication Instructions Recorded Confirmed Amoxicillin 500 mg PO TID #30 cap 05/04/22 Oxycodone HCl/Acetaminophen 1 - 2 each PO Q6H PRN #14 tablet 05/04/22 [Percocet 5-325 mg Tablet] Hydrocortisone/Pramoxine 1 applic RC BID #10 gm 05/26/22 [Proctofoam-Hc Foam] traMADol [Ultram] 50 mg PO Q4-6H PRN #14 tablet 05/26/22 Nitroglycerin [Rectiv] 1 appful RC BID #60 gm 11/09/22 traMADol [Ultram] 0.5 - 1 tab PO ONCE PRN #10 tablet 11/09/22 - Allergies Allergies/Adverse Reactions: Allergies Allergy/AdvReac Type Severity Reaction Status Date / Time No Known Drug Allergies Allergy Verified 11/09/22 16:15 - Social History Does the pt smoke?: No Smoking Status: Never smoker Does the pt drink ETOH?: No Does the pt have substance abuse?: No - Immunizations Immunizations are current?: Yes Immunizations: TDAP current <10years - POLST Patient has POLST: No PD ED PE NORMAL - Vitals Vital signs reviewed: Yes - General General: Alert and oriented X 3, No acute distress - Abdomen Abdomen: Soft, Non tender - Female Female : Pt declined (She declined rectal examination as she is confident of the diagnosis.) - Neuro Neuro: Alert and oriented X 3, Normal speech Results - Vitals Vitals: Vital Signs - 24 hr 11/09/22 16:12 Temperature 36.0 C L Heart Rate 92 Respiratory 16 Rate Blood Pressure 159/74 H O2 Saturation 100 Oxygen O2 Source Room air Departure - Departure Disposition: 01 Home, Self Care Clinical Impression: Rectal fissure Condition: Good Record reviewed to determine appropriate education?: Yes Instructions: ED Fissure Anal Ch Prescriptions: Nitroglycerin [Rectiv] 1 appful RC BID #60 gm traMADol [Ultram] 0.5 - 1 tab PO ONCE PRN #10 tablet PRN Reason: Pain Comments: [facility] [place]. Follow-up with the specialist, next available appointment. Return for new or worsening symptoms. I am prescribing a short course of narcotic pain medication for you. These are potentially dangerous and addictive medications that should be used carefully. These medications may constipate you. Take an imfd-jxx-mrskwvy stool softener (docusate) twice daily with plenty of water while taking these medications. If you go 24 hours without a bowel movement, take hhxu-qrp-mlljose miralax, per package instructions. Do not drink or drive while taking these medications. If you received narcotic or sedating medications while in the emergency department, do not drive for 24 hours. Store this medication in a safe, secure place and out of reach of children. It is a violation of federal law to give or sell this medication to another person or to use in a manner other than prescribed. The ED will not refill narcotic prescriptions, including prescriptions lost or stolen. To dispose of unwanted medications: 1. [facility] at [address] [facility] [facility] in [place] has a medication drop box. They accept prescription medications (in pill form) Friday through Friday 9:00 a.m. to 5:00 p.m. 2. The [facility] Police Department accepts prescription medications (in pill form only) for disposal year round. Call for more information. 3. Contact the [facility] for the next [facility] sponsored prescription drug collection event. , [phone], or [phone]; Note that many narcotic pain relievers also contain Tylenol/acetaminophen. Please ensure that your total dose of acetaminophen from all sources does not exceed 3 g (3000 mg) per day.
== END 2022-11-09 16:45 | disposition home or self-care (01) ==
LOC: ED 16:08
DX: K60.2 Anal fissure, unspecified (principal)
CPT/HCPCS: 99282; 99283

== ENCOUNTER 2023-01-14 13:44 | Emergency (ER) | payer OTHER ==
[2023-01-14 13:51] VITALS: BP 135/87
--- OUTSIDE RECORDS SUMMARY | 2023-01-14 13:58 | EXTERNAL MEDICAL SUMMARY RPT | Continuity of Care Document ---
:1985 Author Organization [place] Address [address] [place] [address] Phone Allergies No information. Encounters No information. Functional Status No information. Immunizations No information. Medications No information. Problems date description facility 2022-10-29 11:47 Iron deficiency anemia, unspecified Is [facility] 2022-11-04 10:50 Iron deficiency anemia, unspecified Is [facility] 2022-11-04 14:01 Iron deficiency anemia, unspecified Is [facility] 2022-11-11 11:29 Iron deficiency anemia, unspecified Is [facility] 2022-11-11 11:36 Iron deficiency anemia, unspecified Is [facility] 2022-11-13 10:55 Iron deficiency anemia, unspecified Is [facility] 2022-11-21 09:32 Iron deficiency anemia, unspecified Is [facility] 2022-11-25 07:19 Iron deficiency anemia, unspecified Is [facility] 2022-11-25 07:45 Iron deficiency anemia, unspecified Is [facility] 2022-11-26 10:54 Iron deficiency anemia, unspecified Is [facility] 2022-11-26 14:27 Iron deficiency anemia, unspecified Is [facility] 2022-12-03 10:42 Iron deficiency anemia, unspecified Is [facility] 2022-12-27 13:42 Iron deficiency anemia, unspecified Is [facility] 2022-12-30 10:08 Iron deficiency anemia, unspecified Is [facility] 2023-01-06 09:33 Iron deficiency anemia, unspecified Is [facility] 2023-01-06 09:39 Iron deficiency anemia, unspecified Is [facility] Procedures No information. Results/Labs test date author facility value unit interpret ation Result panel 1 (unknown) (no (unknown) (unknown) (no value) (units (unk nown) date) unknown) (unknown) (no (unknown) (unknown) (1) Iron (units (unkno wn) date) deficiency anemia unknown) (unknown) (no (unknown) (unknown) - Constitutional (units (unknown) date) unknown) (unknown) (no (unknown) (unknown) - Consult (units (unkn own) date) Narrative unknown) (unknown) (no (unknown) (unknown) - Data of Consult (units (unknown) date) unknown) (unknown) (no (unknown) (unknown) - Medical, (units (unk nown) date) Surgical, Family unknown) History (unknown) (no (unknown) (unknown) - Patient (units (unkn own) date) Self-Reported unknown) Symptoms (unknown) (no (unknown) (unknown) - Routine (units (unkn own) date) Abdominal Exam unknown) (unknown) (no (unknown) (unknown) - Routine (units (unkn own) date) Cardiovascular unknown) Exam (unknown) (no (unknown) (unknown) - Routine (units (unkn own) date) Extremities Exam unknown) (unknown) (no (unknown) (unknown) - Routine HEENT (units (unknown) date) Exam unknown) (unknown) (no (unknown) (unknown) - Routine (units (unkn own) date) Neurological Exam unknown) (unknown) (no (unknown) (unknown) - Routine (units (unkn own) date) Psychiatric Exam unknown) (unknown) (no (unknown) (unknown) - Routine (units (unkn own) date) Respiratory Exam unknown) (unknown) (no (unknown) (unknown) - Routine Skin (units (unknown) date) Exam unknown) (unknown) (no (unknown) (unknown) - Social History (units (unknown) date) unknown) (unknown) (no (unknown) (unknown) [id number] (units (unkn own) date) unknown) (unknown) (no (unknown) (unknown) 10/28/22 10/29/22 (units (unknown) date) 10/29/22 unknown) (unknown) (no (unknown) (unknown) 10/29/22 11:30 (units (unknown) date) 97.9 F 65 16 unknown) 126/79 100 (unknown) (no (unknown) (unknown) 10/29/22 (units (unkno wn) date) unknown) (unknown) (no (unknown) (unknown) 23:59 07:59 15:59 (units (unknown) date) unknown) (unknown) (no (unknown) (unknown) 23:59 (units (unkno wn) date) unknown) (unknown) (no (unknown) (unknown) Age/Sex: 37 / F (units (unknown) date) unknown) (unknown) (no (unknown) (unknown) Allergies (units (unkn own) date) unknown) (unknown) (no (unknown) (unknown) Allergy/AdvReac (units (unknown) date) Type Severity unknown) Reaction Status Date / Time (unknown) (no (unknown) (unknown) Assessment and (units (unknown) date) Plan unknown) (unknown) (no (unknown) (unknown) Breast cancer (units ( unknown) date) unknown) (unknown) (no (unknown) (unknown) CC: Richard (units (unk nown) date) MD Brandan unknown) (unknown) (no (unknown) (unknown) Cardiovascular: (units (unknown) date) no chest pain, no unknown) edema (unknown) (no (unknown) (unknown) Constitutional: (units (unknown) date) other (negative unknown) for unexpected weight change), no fever(s) (unknown) (no (unknown) (unknown) : 1985 (units (unknown) date) Acct:[id number] unknown) (unknown) (no (unknown) (unknown) Date of Service: (units (unknown) date) 10/29/22 unknown) (unknown) (no (unknown) (unknown) Diabetes mellitus (units (unknown) date) unknown) (unknown) (no (unknown) (unknown) Due to (units (unkno wn) date) progression of her unknown) iron deficiency she is now being referred for (unknown) (no (unknown) (unknown) ENT: Present: (units ( unknown) date) mucous membranes unknown) moist (unknown) (no (unknown) (unknown) Ears, nose, (units (un known) date) mouth, throat: no unknown) sore throat, no lump, no mass, no mouth sores (unknown) (no (unknown) (unknown) Exam (units (unkno wn) date) unknown) (unknown) (no (unknown) (unknown) Eye: Present: (units ( unknown) date) PERRL unknown) (Conjunctivae normal) (unknown) (no (unknown) (unknown) Family History (units (unknown) date) (Last Reviewed unknown) 10/27/22 @ 14:18 by Magalys West MA) (unknown) (no (unknown) (unknown) Family History: (units (unknown) date) unknown) (unknown) (no (unknown) (unknown) Family/Other (units (u nknown) date) unknown) (unknown) (no (unknown) (unknown) Father (units (unkno wn) date) unknown) (unknown) (no (unknown) (unknown) Gastrointestinal: (units (unknown) date) other (negative unknown) for blood in stool), no abdominal pain, no (unknown) (no (unknown) (unknown) Genitourinary: no (units (unknown) date) dysuria, no unknown) hematuria (unknown) (no (unknown) (unknown) Head: Present: (units (unknown) date) normocephalic unknown) (unknown) (no (unknown) (unknown) Hematologic/Lymph (units (unknown) date) atic: no unknown) adenopathy (unknown) (no (unknown) (unknown) History of (units (unk nown) date) Present Illness unknown) (unknown) (no (unknown) (unknown) Home Medications (units (unknown) date) and Allergies unknown) (unknown) (no (unknown) (unknown) Home Medications (units (unknown) date) unknown) (unknown) (no (unknown) (unknown) Intake and Output (units (unknown) date) unknown) (unknown) (no (unknown) (unknown) Integumentary: no (units (unknown) date) rash, no itching unknown) (unknown) (no (unknown) (unknown) [facility] (units (unknown) date) [address] [place] [address] unknown) [place] [address] (unknown) (no (unknown) (unknown) Tina Hernandez (units (unknown) date) is a 37 year old unknown) female (unknown) (no (unknown) (unknown) Medical History (units (unknown) date) unknown) (unknown) (no (unknown) (unknown) Medication (units (unk nown) date) Instructions unknown) Recorded Confirmed Type (unknown) (no (unknown) (unknown) Mother (units (unkno wn) date) unknown) (unknown) (no (unknown) (unknown) Musculoskeletal: (units (unknown) date) no abnormal gait, unknown) no back pain, no myalgias (unknown) (no (unknown) (unknown) Narrative: (units (unk nown) date) unknown) (unknown) (no (unknown) (unknown) Neurological: no (units (unknown) date) abnormal gait, no unknown) dizziness, no headache(s) (unknown) (no (unknown) (unknown) No Known Drug (units ( unknown) date) Allergies Allergy unknown) Unverified 09/19/22 14:13 (unknown) (no (unknown) (unknown) Oncology Consult (units (unknown) date) unknown) (unknown) (no (unknown) (unknown) Other: (units (unkno wn) date) unknown) (unknown) (no (unknown) (unknown) Patient Weight (units (unknown) date) unknown) (unknown) (no (unknown) (unknown) Patient: (units (unkno wn) date) Tina Hernandez unknown) MR#: M (unknown) (no (unknown) (unknown) Plan (units (unkno wn) date) unknown) (unknown) (no (unknown) (unknown) Present: Clear to (units (unknown) date) auscultation unknown) bilaterally. Absent: rales, respiratory (unknown) (no (unknown) (unknown) Present: RRR. (units ( unknown) date) Absent: murmur, unknown) irregular rhythm (unknown) (no (unknown) (unknown) Present: alert, (units (unknown) date) oriented X3. unknown) Absent: sensory deficit, motor deficit (unknown) (no (unknown) (unknown) Present: dry, (units ( unknown) date) warm. Absent: unknown) lesions (No Bruising), jaundice (unknown) (no (unknown) (unknown) Present: full (units ( unknown) date) ROM. Absent: unknown) edema, tenderness (No Swelling) (unknown) (no (unknown) (unknown) Present: normal (units (unknown) date) affect, normal unknown) thought process, cooperative. Absent: anxious, (unknown) (no (unknown) (unknown) Present: soft. (units (unknown) date) Absent: unknown) tenderness, distended, guarding (unknown) (no (unknown) (unknown) Primary Care (units (u nknown) date) Provider: unknown) (unknown) (no (unknown) (unknown) Provider: (units (unkn own) date) Richard Gipson MD unknown) (unknown) (no (unknown) (unknown) Psychiatric: (units (u ) date) other (negative unknown) for decreased concentration), no anxiety (unknown) (no (unknown) (unknown) Reason for (units () date) consult: Iron unknown) deficiency anemia (unknown) (no (unknown) (unknown) Referred for (units (u wn) date) evaluation of iron unknown) deficiency anemia. The patient states that (unknown) (no (unknown) (unknown) Respiratory: no (units (unknown) date) shortness of unknown) breath, no cough (unknown) (no (unknown) (unknown) Return to clinic (units (unknown) date) in 8 weeks for unknown) repeat CBC to assess response (unknown) (no (unknown) (unknown) Review of Systems (units (unknown) date) unknown) (unknown) (no (unknown) (unknown) SR Constitution: (units (unknown) date) Fatigue/Malaise unknown) (unknown) (no (unknown) (unknown) SR Neuro issues: (units (unknown) date) Headache unknown) (unknown) (no (unknown) (unknown) Lorelei (units ( wn) date) TRAM Vazquez unknown) (unknown) (no (unknown) (unknown) Signed By: (units () date) unknown) (unknown) (no (unknown) (unknown) Sister (units ( wn) date) unknown) (unknown) (no (unknown) (unknown) Smoking Status: (units (unknown) date) Never smoker unknown) (unknown) (no (unknown) (unknown) Start Venofer 300 (units (unknown) date) mg IV weekly x5 unknown) doses (unknown) (no (unknown) (unknown) Status: Acute (units ( unknown) date) unknown) (unknown) (no (unknown) (unknown) Temp Pulse Resp (units (unknown) date) BP Pulse Ox unknown) (unknown) (no (unknown) (unknown) This is a very (units (unknown) date) pleasant unknown) 37-year-old female with history of iron deficiency (unknown) (no (unknown) (unknown) Vital Signs (units (un known) date) unknown) (unknown) (no (unknown) (unknown) Vital signs: (units (u nknown) date) unknown) (unknown) (no (unknown) (unknown) Weight 94.3 kg (units (unknown) date) unknown) (unknown) (no (unknown) (unknown) agitated (units (unkno wn) date) unknown) (unknown) (no (unknown) (unknown) anemia and poor (units (unknown) date) tolerance of oral unknown) iron due to constipation and hemorrhoids. 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 Potential benefits and (unknown) (no (unknown) (unknown) consideration of (units (unknown) date) intravenous iron. unknown) She does have regular menses and states that (unknown) (no (unknown) (unknown) dextroamphetamine (units (unknown) date) -amphetamine 20 20 unknown) mg PO DAILY 10/29/22 10/29/22 History (unknown) (no (unknown) (unknown) diarrhea (units (unkno wn) date) unknown) (unknown) (no (unknown) (unknown) distress, wheezes (units (unknown) date) unknown) (unknown) (no (unknown) (unknown) docusate sodium (units (unknown) date) 50 mg tablet mg PO unknown) 10/29/22 History (unknown) (no (unknown) (unknown) has no other (units (u nknown) date) medical issues in unknown) denies any fevers chills nausea vomiting (unknown) (no (unknown) (unknown) headaches weight (units (unknown) date) loss loss of unknown) appetite or abdominal pain. (unknown) (no (unknown) (unknown) her poor (units (unkno wn) date) tolerance of oral unknown) iron I will go ahead and schedule her to receive (unknown) (no (unknown) (unknown) in 6-8 weeks to (units (unknown) date) assess response unknown) for this. She does report heavy menses and will (unknown) (no (unknown) (unknown) intravenous iron (units (unknown) date) sucrose 300 mg unknown) weekly x5 doses. I will plan on repeating a CBC (unknown) (no (unknown) (unknown) iron deficiency. (units (unknown) date) She was started on unknown) oral iron however she became constipated on (unknown) (no (unknown) (unknown) methylcellulose (units (unknown) date) (with sugar) oral unknown) ea PO 10/29/22 History (unknown) (no (unknown) (unknown) mg tablet (units (unkn own) date) (Adderall) unknown) (unknown) (no (unknown) (unknown) patient does have (units (unknown) date) a microcytic unknown) anemia with documented iron deficiency. Given (unknown) (no (unknown) (unknown) positive no acute (units (unknown) date) distress, negative unknown) diaphoretic (unknown) (no (unknown) (unknown) powder packet (units ( unknown) date) unknown) (unknown) (no (unknown) (unknown) proceed. (units (unkno wn) date) unknown) (unknown) (no (unknown) (unknown) she is having a (units (unknown) date) biopsy/endometrial unknown) for heavy cycle flow. Otherwise Ms. Hernandez (unknown) (no (unknown) (unknown) this and (units (unkno wn) date) eventually unknown) developed hemorrhoids which made taking oral iron difficult. (unknown) (no (unknown) (unknown) toxicities of (units (u nknown) date) intravenous iron unknown) were discussed with the patient and she wishes to Result panel 2 (unknown) (no date) (unknown) (unknown) 0 /ul (unkn own) (unknown) (no date) (unknown) (unknown) 0.3 % (unkn own) (unknown) (no date) (unknown) (unknown) 1.7 % (unkn own) (unknown) (no date) (unknown) (unknown) 100 /ul (unkn own) (unknown) (no date) (unknown) (unknown) 1000 /ul (unkn own) (unknown) (no date) (unknown) (unknown) 17.6 % (unkn own) (unknown) (no date) (unknown) (unknown) 200 /ul (unkn own) (unknown) (no date) (unknown) (unknown) 21.3 pg (unkn own) (unknown) (no date) (unknown) (unknown) 23.7 % (unkn own) (unknown) (no date) (unknown) (unknown) 248 x10 3/ul (unkn own) (unknown) (no date) (unknown) (unknown) 2900 /ul (unkn own) (unknown) (no date) (unknown) (unknown) 31.0 % (unkn own) (unknown) (no date) (unknown) (unknown) 31.7 % (unkn own) (unknown) (no date) (unknown) (unknown) 4.3 x10 3/ul (unkn own) (unknown) (no date) (unknown) (unknown) 4.63 x10 6/ul (unkn own) (unknown) (no date) (unknown) (unknown) 5.4 % (unkn own) (unknown) (no date) (unknown) (unknown) 68.5 fl (unkn own) (unknown) (no date) (unknown) (unknown) 68.9 % (unkn own) (unknown) (no date) (unknown) (unknown) 9.8 g/dl (unkn own) Result panel 3 (unknown) (no date) (unknown) (unknown) > 60 ml/min (unkn own) (unknown) (no date) (unknown) (unknown) > 60 ml/min (unkn own) (unknown) (no date) (unknown) (unknown) 0.4 mg/dl (unkn own) (unknown) (no date) (unknown) (unknown) 0.73 mg/dl (unkn own) (unknown) (no date) (unknown) (unknown) 1.6 (units unknown) (unknown) (unknown) (no date) (unknown) (unknown) 105 mmol/l (unkn own) (unknown) (no date) (unknown) (unknown) 137 mmol/l (unkn own) (unknown) (no date) (unknown) (unknown) 14 iu/l (unkn own) (unknown) (no date) (unknown) (unknown) 16 iu/l (unkn own) (unknown) (no date) (unknown) (unknown) 2.7 g/dl (unkn own) (unknown) (no date) (unknown) (unknown) 26 mmol/l (unkn own) (unknown) (no date) (unknown) (unknown) 4.2 g/dl (unkn own) (unknown) (no date) (unknown) (unknown) 4.2 mmol/l (unkn own) (unknown) (no date) (unknown) (unknown) 6.9 g/dl (unkn own) (unknown) (no date) (unknown) (unknown) 62 u/l (unkn own) (unknown) (no date) (unknown) (unknown) 7 mg/dl (unkn own) (unknown) (no date) (unknown) (unknown) 8.5 mg/dl (unkn own) (unknown) (no date) (unknown) (unknown) 9.6 (units unknown) (unknown) (unknown) (no date) (unknown) (unknown) 98 mg/dl (unkn own) (unknown) (no date) (unknown) (unknown) 98 mg/dl (unkn own) Result panel 4 (unknown) (no date) (unknown) (unknown) 0 /ul (unkn own) (unknown) (no date) (unknown) (unknown) 0.3 % (unkn own) (unknown) (no date) (unknown) (unknown) 1 (units unknown) (unknown) (unknown) (no date) (unknown) (unknown) 1.7 % (unkn own) (unknown) (no date) (unknown) (unknown) 100 /ul (unkn own) (unknown) (no date) (unknown) (unknown) 1000 /ul (unkn own) (unknown) (no date) (unknown) (unknown) 17.6 % (unkn own) (unknown) (no date) (unknown) (unknown) 200 /ul (unkn own) (unknown) (no date) (unknown) (unknown) 21.3 pg (unkn own) (unknown) (no date) (unknown) (unknown) 23.7 % (unkn own) (unknown) (no date) (unknown) (unknown) 248 x10 3/ul (unkn own) (unknown) (no date) (unknown) (unknown) 2900 /ul (unkn own) (unknown) (no date) (unknown) (unknown) 31.0 % (unkn own) (unknown) (no date) (unknown) (unknown) 31.7 % (unkn own) (unknown) (no date) (unknown) (unknown) 4.3 x10 3/ul (unkn own) (unknown) (no date) (unknown) (unknown) 4.63 x10 6/ul (unkn own) (unknown) (no date) (unknown) (unknown) 5.4 % (unkn own) (unknown) (no date) (unknown) (unknown) 68.5 fl (unkn own) (unknown) (no date) (unknown) (unknown) 68.9 % (unkn own) (unknown) (no date) (unknown) (unknown) 9.8 g/dl (unkn own) Result panel 5 (unknown) (no date) (unknown) (unknown) > 60 ml/min (unkn own) (unknown) (no date) (unknown) (unknown) > 60 ml/min (unkn own) (unknown) (no date) (unknown) (unknown) 0.4 mg/dl (unkn own) (unknown) (no date) (unknown) (unknown) 0.73 mg/dl (unkn own) (unknown) (no date) (unknown) (unknown) 1.6 (units unknown) (unknown) (unknown) (no date) (unknown) (unknown) 105 mmol/l (unkn own) (unknown) (no date) (unknown) (unknown) 137 mmol/l (unkn own) (unknown) (no date) (unknown) (unknown) 14 iu/l (unkn own) (unknown) (no date) (unknown) (unknown) 16 iu/l (unkn own) (unknown) (no date) (unknown) (unknown) 2.7 g/dl (unkn own) (unknown) (no date) (unknown) (unknown) 26 mmol/l (unkn own) (unknown) (no date) (unknown) (unknown) 4.2 g/dl (unkn own) (unknown) (no date) (unknown) (unknown) 4.2 mmol/l (unkn own) (unknown) (no date) (unknown) (unknown) 5 ng/ml (unkn own) (unknown) (no date) (unknown) (unknown) 6.9 g/dl (unkn own) (unknown) (no date) (unknown) (unknown) 62 u/l (unkn own) (unknown) (no date) (unknown) (unknown) 7 mg/dl (unkn own) (unknown) (no date) (unknown) (unknown) 8.5 mg/dl (unkn own) (unknown) (no date) (unknown) (unknown) 9.6 (units unknown) (unknown) (unknown) (no date) (unknown) (unknown) 98 mg/dl (unkn own) (unknown) (no date) (unknown) (unknown) 98 mg/dl (unkn own) Result panel 6 (unknown) (no date) (unknown) (unknown) 27 ug/dl (unkn own) Result panel 7 (unknown) (no date) (unknown) (unknown) 27 ug/dl (unkn own) (unknown) (no date) (unknown) (unknown) 351 mg/dl (unkn own) (unknown) (no date) (unknown) (unknown) 423 ug/dl (unkn own) (unknown) (no date) (unknown) (unknown) 6 % (unkn own) Result panel 8 (unknown) (no (unknown) (unknown) (no value) (units (unk nown) date) unknown) (unknown) (no (unknown) (unknown) (1) Iron (units (unkno wn) date) deficiency anemia unknown) (unknown) (no (unknown) (unknown) - Constitutional (units (unknown) date) unknown) (unknown) (no (unknown) (unknown) - Consult (units (unkn own) date) Narrative unknown) (unknown) (no (unknown) (unknown) - Data of Consult (units (unknown) date) unknown) (unknown) (no (unknown) (unknown) - Medical, (units (unk nown) date) Surgical, Family unknown) History (unknown) (no (unknown) (unknown) - Patient (units (unkn own) date) Self-Reported unknown) Symptoms (unknown) (no (unknown) (unknown) - Routine (units (unkn own) date) Abdominal Exam unknown) (unknown) (no (unknown) (unknown) - Routine (units (unkn own) date) Cardiovascular unknown) Exam (unknown) (no (unknown) (unknown) - Routine (units (unkn own) date) Extremities Exam unknown) (unknown) (no (unknown) (unknown) - Routine HEENT (units (unknown) date) Exam unknown) (unknown) (no (unknown) (unknown) - Routine (units (unkn own) date) Neurological Exam unknown) (unknown) (no (unknown) (unknown) - Routine (units (unkn own) date) Psychiatric Exam unknown) (unknown) (no (unknown) (unknown) - Routine (units (unkn own) date) Respiratory Exam unknown) (unknown) (no (unknown) (unknown) - Routine Skin (units (unknown) date) Exam unknown) (unknown) (no (unknown) (unknown) - Social History (units (unknown) date) unknown) (unknown) (no (unknown) (unknown) [id number] (units (unkn own) date) unknown) (unknown) (no (unknown) (unknown) 10/28/22 10/29/22 (units (unknown) date) 10/29/22 unknown) (unknown) (no (unknown) (unknown) 10/29/22 11:30 (units (unknown) date) 97.9 F 65 16 unknown) 126/79 100 (unknown) (no (unknown) (unknown) 10/29/22 (units (unkno wn) date) unknown) (unknown) (no (unknown) (unknown) 10/30/22 0905 (units ( unknown) date) unknown) (unknown) (no (unknown) (unknown) 23:59 07:59 15:59 (units (unknown) date) unknown) (unknown) (no (unknown) (unknown) 23:59 (units (unkno wn) date) unknown) (unknown) (no (unknown) (unknown) Age/Sex: 37 / F (units (unknown) date) unknown) (unknown) (no (unknown) (unknown) Allergies (units (unkn own) date) unknown) (unknown) (no (unknown) (unknown) Allergy/AdvReac (units (unknown) date) Type Severity unknown) Reaction Status Date / Time (unknown) (no (unknown) (unknown) Assessment and (units (unknown) date) Plan unknown) (unknown) (no (unknown) (unknown) Breast cancer (units ( unknown) date) unknown) (unknown) (no (unknown) (unknown) CC: Richard (units (unk nown) date) MD Brandan unknown) (unknown) (no (unknown) (unknown) Cardiovascular: (units (unknown) date) no chest pain, no unknown) edema (unknown) (no (unknown) (unknown) Constitutional: (units (unknown) date) other (negative unknown) for unexpected weight change), no fever(s) (unknown) (no (unknown) (unknown) : 1985 (units (unknown) date) Acct:[id number] unknown) (unknown) (no (unknown) (unknown) Date of Service: (units (unknown) date) 10/29/22 unknown) (unknown) (no (unknown) (unknown) Diabetes mellitus (units (unknown) date) unknown) (unknown) (no (unknown) (unknown) Due to (units (unkno wn) date) progression of her unknown) iron deficiency she is now being referred for (unknown) (no (unknown) (unknown) ENT: Present: (units ( unknown) date) mucous membranes unknown) moist (unknown) (no (unknown) (unknown) Ears, nose, (units (un known) date) mouth, throat: no unknown) sore throat, no lump, no mass, no mouth sores (unknown) (no (unknown) (unknown) Exam (units (unkno wn) date) unknown) (unknown) (no (unknown) (unknown) Eye: Present: (units ( unknown) date) PERRL unknown) (Conjunctivae normal) (unknown) (no (unknown) (unknown) Family History (units (unknown) date) (Last Reviewed unknown) 09/19/22 @ 14:18 by Magalys West MA) (unknown) (no (unknown) (unknown) Family History: (units (unknown) date) unknown) (unknown) (no (unknown) (unknown) Family/Other (units (u nknown) date) unknown) (unknown) (no (unknown) (unknown) Father (units (unkno wn) date) unknown) (unknown) (no (unknown) (unknown) Gastrointestinal: (units (unknown) date) other (negative unknown) for blood in stool), no abdominal pain, no (unknown) (no (unknown) (unknown) Genitourinary: no (units (unknown) date) dysuria, no unknown) hematuria (unknown) (no (unknown) (unknown) Head: Present: (units (unknown) date) normocephalic unknown) (unknown) (no (unknown) (unknown) Hematologic/Lymph (units (unknown) date) atic: no unknown) adenopathy (unknown) (no (unknown) (unknown) History of (units (unk nown) date) Present Illness unknown) (unknown) (no (unknown) (unknown) Home Medications (units (unknown) date) and Allergies unknown) (unknown) (no (unknown) (unknown) Home Medications (units (unknown) date) unknown) (unknown) (no (unknown) (unknown) Intake and Output (units (unknown) date) unknown) (unknown) (no (unknown) (unknown) Integumentary: no (units (unknown) date) rash, no itching unknown) (unknown) (no (unknown) (unknown) [facility] (units (unknown) date) [address] [place] [address] Street unknown) [place] [address] (unknown) (no (unknown) (unknown) Tina Hernandez (units (unknown) date) is a 37 year old unknown) female (unknown) (no (unknown) (unknown) Medical History (units (unknown) date) unknown) (unknown) (no (unknown) (unknown) Medication (units (unk nown) date) Instructions unknown) Recorded Confirmed Type (unknown) (no (unknown) (unknown) Mother (units (unkno wn) date) unknown) (unknown) (no (unknown) (unknown) Musculoskeletal: (units (unknown) date) no abnormal gait, unknown) no back pain, no myalgias (unknown) (no (unknown) (unknown) Narrative: (units (unk nown) date) unknown) (unknown) (no (unknown) (unknown) Neurological: no (units (unknown) date) abnormal gait, no unknown) dizziness, no headache(s) (unknown) (no (unknown) (unknown) No Known Drug (units ( unknown) date) Allergies Allergy unknown) Unverified 09/19/22 14:13 (unknown) (no (unknown) (unknown) Oncology Consult (units (unknown) date) unknown) (unknown) (no (unknown) (unknown) Other: (units (unkno wn) date) unknown) (unknown) (no (unknown) (unknown) Patient Weight (units (unknown) date) unknown) (unknown) (no (unknown) (unknown) Patient: (units (unkno wn) date) Tina Hernandez unknown) MR#: M (unknown) (no (unknown) (unknown) Plan (units (unkno wn) date) unknown) (unknown) (no (unknown) (unknown) Present: Clear to (units (unknown) date) auscultation unknown) bilaterally. Absent: rales, respiratory (unknown) (no (unknown) (unknown) Present: RRR. (units ( unknown) date) Absent: murmur, unknown) irregular rhythm (unknown) (no (unknown) (unknown) Present: alert, (units (unknown) date) oriented X3. unknown) Absent: sensory deficit, motor deficit (unknown) (no (unknown) (unknown) Present: dry, (units ( unknown) date) warm. Absent: unknown) lesions (No Bruising), jaundice (unknown) (no (unknown) (unknown) Present: full (units ( unknown) date) ROM. Absent: unknown) edema, tenderness (No Swelling) (unknown) (no (unknown) (unknown) Present: normal (units (unknown) date) affect, normal unknown) thought process, cooperative. Absent: anxious, (unknown) (no (unknown) (unknown) Present: soft. (units (unknown) date) Absent: unknown) tenderness, distended, guarding (unknown) (no (unknown) (unknown) Primary Care (units (u nknown) date) Provider: unknown) (unknown) (no (unknown) (unknown) Provider: (units (unkn own) date) Richard Gipson MD unknown) (unknown) (no (unknown) (unknown) Psychiatric: (units (u nknown) date) other (negative unknown) for decreased concentration), no anxiety (unknown) (no (unknown) (unknown) Reason for (units (unk nown) date) consult: Iron unknown) deficiency anemia (unknown) (no (unknown) (unknown) Referred for (units (u nknown) date) evaluation of iron unknown) deficiency anemia. The patient states that (unknown) (no (unknown) (unknown) Respiratory: no (units (unknown) date) shortness of unknown) breath, no cough (unknown) (no (unknown) (unknown) Return to clinic (units (unknown) date) in 8 weeks for unknown) repeat CBC to assess response (unknown) (no (unknown) (unknown) Review of Systems (units (unknown) date) unknown) (unknown) (no (unknown) (unknown) SR Constitution: (units (unknown) date) Fatigue/Malaise unknown) (unknown) (no (unknown) (unknown) SR Neuro issues: (units (unknown) date) Headache unknown) (unknown) (no (unknown) (unknown) Lorelei (units (unkno wn) date) Vazquez, WAREHOUSE FOREMAN unknown) (unknown) (no (unknown) (unknown) Signed (units (unkno wn) date) By:<Electronically unknown) signed by Richard Gipson MD> (unknown) (no (unknown) (unknown) Sister (units (unkno wn) date) unknown) (unknown) (no (unknown) (unknown) Smoking Status: (units (unknown) date) Never smoker unknown) (unknown) (no (unknown) (unknown) Start Venofer 300 (units (unknown) date) mg IV weekly x5 unknown) doses (unknown) (no (unknown) (unknown) Status: Acute (units ( unknown) date) unknown) (unknown) (no (unknown) (unknown) Temp Pulse Resp (units (unknown) date) BP Pulse Ox unknown) (unknown) (no (unknown) (unknown) This is a very (units (unknown) date) pleasant unknown) 37-year-old female with history of iron deficiency (unknown) (no (unknown) (unknown) Vital Signs (units (un known) date) unknown) (unknown) (no (unknown) (unknown) Vital signs: (units (u nknown) date) unknown) (unknown) (no (unknown) (unknown) Weight 94.3 kg (units (unknown) date) unknown) (unknown) (no (unknown) (unknown) agitated (units (unkno wn) date) unknown) (unknown) (no (unknown) (unknown) anemia and poor (units (unknown) date) tolerance of oral unknown) iron due to constipation and hemorrhoids. 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 Potential benefits and (unknown) (no (unknown) (unknown) consideration of (units (unknown) date) intravenous iron. unknown) She does have regular menses and states that (unknown) (no (unknown) (unknown) dextroamphetamine (units (unknown) date) -amphetamine 20 20 unknown) mg PO DAILY 10/29/22 10/29/22 History (unknown) (no (unknown) (unknown) diarrhea (units (unkno wn) date) unknown) (unknown) (no (unknown) (unknown) distress, wheezes (units (unknown) date) unknown) (unknown) (no (unknown) (unknown) docusate sodium (units (unknown) date) 50 mg tablet mg PO unknown) 10/29/22 History (unknown) (no (unknown) (unknown) has no other (units (u nknown) date) medical issues in unknown) denies any fevers chills nausea vomiting (unknown) (no (unknown) (unknown) headaches weight (units (unknown) date) loss loss of unknown) appetite or abdominal pain. (unknown) (no (unknown) (unknown) her poor (units (unkno wn) date) tolerance of oral unknown) iron I will go ahead and schedule her to receive (unknown) (no (unknown) (unknown) in 6-8 weeks to (units (unknown) date) assess response unknown) for this. She does report heavy menses and will (unknown) (no (unknown) (unknown) intravenous iron (units (unknown) date) sucrose 300 mg unknown) weekly x5 doses. I will plan on repeating a CBC (unknown) (no (unknown) (unknown) iron deficiency. (units (unknown) date) She was started on unknown) oral iron however she became constipated on (unknown) (no (unknown) (unknown) methylcellulose (units (unknown) date) (with sugar) oral unknown) ea PO 10/29/22 History (unknown) (no (unknown) (unknown) mg tablet (units (unkn own) date) (Adderall) unknown) (unknown) (no (unknown) (unknown) patient does have (units (unknown) date) a microcytic unknown) anemia with documented iron deficiency. Given (unknown) (no (unknown) (unknown) positive no acute (units (unknown) date) distress, negative unknown) diaphoretic (unknown) (no (unknown) (unknown) powder packet (units ( unknown) date) unknown) (unknown) (no (unknown) (unknown) proceed. (units (unkno wn) date) unknown) (unknown) (no (unknown) (unknown) she is having a (units (unknown) date) biopsy/endometrial unknown) for heavy cycle flow. Otherwise Ms. Hernandez (unknown) (no (unknown) (unknown) this and (units (unkno wn) date) eventually unknown) developed hemorrhoids which made taking oral iron difficult. (unknown) (no (unknown) (unknown) toxicities of (units (u nknown) date) intravenous iron unknown) were discussed with the patient and she wishes to Result panel 9 (unknown) (no date) (unknown) (unknown) 0 /ul (unkn own) (unknown) (no date) (unknown) (unknown) 1.0 % (unkn own) (unknown) (no date) (unknown) (unknown) 100 /ul (unkn own) (unknown) (no date) (unknown) (unknown) 1000 /ul (unkn own) (unknown) (no date) (unknown) (unknown) 11.0 g/dl (unkn own) (unknown) (no date) (unknown) (unknown) 223 x10 3/ul (unkn own) (unknown) (no date) (unknown) (unknown) 23.0 pg (unkn own) (unknown) (no date) (unknown) (unknown) 23.6 % (unkn own) (unknown) (no date) (unknown) (unknown) 24.7 % (unkn own) (unknown) (no date) (unknown) (unknown) 2700 /ul (unkn own) (unknown) (no date) (unknown) (unknown) 3.0 % (unkn own) (unknown) (no date) (unknown) (unknown) 300 /ul (unkn own) (unknown) (no date) (unknown) (unknown) 31.1 % (unkn own) (unknown) (no date) (unknown) (unknown) 35.2 % (unkn own) (unknown) (no date) (unknown) (unknown) 4.2 x10 3/ul (unkn own) (unknown) (no date) (unknown) (unknown) 4.77 x10 6/ul (unkn own) (unknown) (no date) (unknown) (unknown) 63.6 % (unkn own) (unknown) (no date) (unknown) (unknown) 7.7 % (unkn own) (unknown) (no date) (unknown) (unknown) 73.8 fl (unkn own) Result panel 10 (unknown) (no date) (unknown) (unknown) 0 /ul (unkn own) (unknown) (no date) (unknown) (unknown) 1 (units unknown) (unknown) (unknown) (no date) (unknown) (unknown) 1.0 % (unkn own) (unknown) (no date) (unknown) (unknown) 100 /ul (unkn own) (unknown) (no date) (unknown) (unknown) 1000 /ul (unkn own) (unknown) (no date) (unknown) (unknown) 11.0 g/dl (unkn own) (unknown) (no date) (unknown) (unknown) 223 x10 3/ul (unkn own) (unknown) (no date) (unknown) (unknown) 23.0 pg (unkn own) (unknown) (no date) (unknown) (unknown) 23.6 % (unkn own) (unknown) (no date) (unknown) (unknown) 24.7 % (unkn own) (unknown) (no date) (unknown) (unknown) 2700 /ul (unkn own) (unknown) (no date) (unknown) (unknown) 3.0 % (unkn own) (unknown) (no date) (unknown) (unknown) 300 /ul (unkn own) (unknown) (no date) (unknown) (unknown) 31.1 % (unkn own) (unknown) (no date) (unknown) (unknown) 35.2 % (unkn own) (unknown) (no date) (unknown) (unknown) 4.2 x10 3/ul (unkn own) (unknown) (no date) (unknown) (unknown) 4.77 x10 6/ul (unkn own) (unknown) (no date) (unknown) (unknown) 63.6 % (unkn own) (unknown) (no date) (unknown) (unknown) 7.7 % (unkn own) (unknown) (no date) (unknown) (unknown) 73.8 fl (unkn own) Result panel 11 (unknown) (no date) (unknown) (unknown) > 60 ml/min (unkn own) (unknown) (no date) (unknown) (unknown) > 60 ml/min (unkn own) (unknown) (no date) (unknown) (unknown) 0.5 mg/dl (unkn own) (unknown) (no date) (unknown) (unknown) 0.68 mg/dl (unkn own) (unknown) (no date) (unknown) (unknown) 1.5 (units unknown) (unknown) (unknown) (no date) (unknown) (unknown) 101 mmol/l (unkn own) (unknown) (no date) (unknown) (unknown) 11.8 (units unknown) (unknown) (unknown) (no date) (unknown) (unknown) 137 mmol/l (unkn own) (unknown) (no date) (unknown) (unknown) 16 iu/l (unkn own) (unknown) (no date) (unknown) (unknown) 19 iu/l (unkn own) (unknown) (no date) (unknown) (unknown) 2.7 g/dl (unkn own) (unknown) (no date) (unknown) (unknown) 27 mmol/l (unkn own) (unknown) (no date) (unknown) (unknown) 3.8 mmol/l (unkn own) (unknown) (no date) (unknown) (unknown) 4.1 g/dl (unkn own) (unknown) (no date) (unknown) (unknown) 50 u/l (unkn own) (unknown) (no date) (unknown) (unknown) 6.8 g/dl (unkn own) (unknown) (no date) (unknown) (unknown) 8 mg/dl (unkn own) (unknown) (no date) (unknown) (unknown) 8.7 mg/dl (unkn own) (unknown) (no date) (unknown) (unknown) 99 mg/dl (unkn own) (unknown) (no date) (unknown) (unknown) 99 mg/dl (unkn own) Social History No information. Vital Signs No information.
--- NOTE | 2023-01-14 14:20 | ED Physician Documentation ---
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 She was unable to obtain the nitroglycerin cream previously prescribed and she has come to the emergency department today wanting treatment. She has had improvement previously for treatment of pain with tramadol. She states the symptoms are no different than her usual she has been in to see a specialist and has been diagnosed with anal fissure as opposed to a problem with hemorrhoids. She has had a hard stool today and is in pain. She declines examination. 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 : None HEENT: None Psych: None Musculoskeletal: None, Chronic back pain Derm: None - Past Surgical History Past Surgical History: No - Present Medications Home Medications: Ambulatory Orders Medication Instructions Recorded Confirmed Hydrocortisone/Pramoxine 1 applic RC BID #10 gm 05/26/22 11/09/22 [Proctofoam-Hc Foam] Docusate Sodium 100Mg Capsule 100 mg PO DAILY PRN 11/09/22 11/09/22 [Colace 100Mg Capsule] Nitroglycerin [Rectiv] 1 appful RC BID #60 gm 11/09/22 polyethylene glycoL 3350 [Miralax] 17 gm PO DAILY PRN 11/09/22 11/09/22 traMADol [Ultram] 0.5 - 1 tab PO ONCE PRN #10 tablet 11/09/22 traMADol [Ultram] 50 - 100 mg PO Q6H PRN #20 tablet 01/14/23 - Allergies Allergies/Adverse Reactions: Allergies Allergy/AdvReac Type Severity Reaction Status Date / Time No Known Drug Allergies Allergy Verified 01/14/23 13:51 - Social History Does the pt smoke?: No Smoking Status: Never smoker Does the pt drink ETOH?: No Does the pt have substance abuse?: No - Immunizations Immunizations are current?: Yes Immunizations: TDAP current <10years - POLST Patient has POLST: No PD ED PE NORMAL - Vitals Vital signs reviewed: Yes (hypertensive ) - General General: Alert and oriented X 3, No acute distress, Well developed/nourished, Other (sitting on side haunch) - HEENT HEENT: Atraumatic, PERRL, EOMI - Respiratory Respiratory: No respiratory distress - Rectal Rectal: Pt declined - Derm Derm: Normal color, Warm and dry, No rash - Extremities Extremities: No deformity, No edema - Neuro Neuro: Alert and oriented X 3, 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, No motor deficit, No sensory deficit, Normal speech Eye Opening: Spontaneous Motor: Obeys Commands Verbal: Oriented GCS Score: 15 - Psych Psych: Normal mood, Normal affect Results - Vitals Vitals: Vital Signs - 24 hr 01/14/23 13:47 Temperature 36.7 C Heart Rate 92 Respiratory 15 Rate Blood Pressure 135/87 H O2 Saturation 98 Oxygen O2 Source Room air PD Medical Decision Making - ED course Complexity details: considered differential, d/w patient ED course: 37-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 I will refill her tramadol. Departure - Departure Disposition: 01 Home, Self Care Clinical Impression: Rectal fissure Condition: Stable Instructions: ED Fissure Anal Ch Follow-Up: YVETTE MARTINEZ ARNP [Primary Care Provider] - Prescriptions: traMADol [Ultram] 50 - 100 mg PO Q6H PRN #20 tablet PRN Reason: Pain Comments: Michelle, today it looks like you are having a recurrence of your fissure and pain associated with this and we will provide you with some pain relief. Follow-up with your specialist for nonresolution or new symptoms. The tramadol has been e-scribed to the [facility] in [place].
== END 2023-01-14 14:31 | disposition home or self-care (01) ==
LOC: ED 13:44
DX: K60.2 Anal fissure, unspecified (principal)
CPT/HCPCS: 99282; 99283

== ENCOUNTER 2023-03-07 02:06 | Emergency (ER) | payer OTHER ==
--- OUTSIDE RECORDS SUMMARY | 2023-03-07 02:13 | EXTERNAL MEDICAL SUMMARY RPT | Continuity of Care Document ---
:1985 Author Organization [facility] Address [address] [place] [address] Phone Care Team Providers Name Role Phone Lorelei Vazquez Unavailable Unavailable Allergies No information. Encounters No information. Functional Status No information. Immunizations No information. Medications No information. Problems date description facility 2022-12-27 13:42 Iron deficiency anemia, unspecified Is [facility] 2022-12-30 10:08 Iron deficiency anemia, unspecified Is [facility] 2023-01-06 09:33 Iron deficiency anemia, unspecified Is [facility] 2023-01-06 09:39 Iron deficiency anemia, unspecified Is [facility] Procedures No information. Results/Labs test date author facility value unit interpret ation Result panel 1 (unknown) (no (unknown) (unknown) (no value) (units (unk nown) date) unknown) (unknown) (no (unknown) (unknown) [id number] (units (unkn own) date) unknown) (unknown) (no (unknown) (unknown) 02/20/23 (units (unkno wn) date) unknown) (unknown) (no (unknown) (unknown) 16:13 (units (unkno wn) date) unknown) (unknown) (no (unknown) (unknown) Age/Sex: 38 / F (units (unknown) date) Date of Service: unknown) (unknown) (no (unknown) (unknown) Allergies (units (unkn own) date) unknown) (unknown) (no (unknown) (unknown) [place], [place] (units ( unknown) date) [id number] unknown) (unknown) (no (unknown) (unknown) Attending Dr: (units ( unknown) date) Johnathan Bhakta MD unknown) (unknown) (no (unknown) (unknown) BMI 33.2 (units (unkno wn) date) unknown) (unknown) (no (unknown) (unknown) BP 130/80 (units (unkn own) date) unknown) (unknown) (no (unknown) (unknown) Blood Pressure (units (unknown) date) Location Lt unknown) brachial (unknown) (no (unknown) (unknown) Confirmed (units (unkn own) date) 02/20/23] unknown) (unknown) (no (unknown) (unknown) : 1985 (units (unknown) date) Acct:[id number] unknown) (unknown) (no (unknown) (unknown) Dept at (units (unkno wn) date) . unknown) (unknown) (no (unknown) (unknown) Documented By: (units (unknown) date) Johnathan Bhakta MD unknown) 02/20/23 1608 (unknown) (no (unknown) (unknown) Draft (units (unkno wn) date) unknown) (unknown) (no (unknown) (unknown) Family History (units (unknown) date) (Reviewed 02/20/23 unknown) @ 16:16 by Magalys West MA) (unknown) (no (unknown) (unknown) Family/Other (units (u nknown) date) Breast cancer unknown) (unknown) (no (unknown) (unknown) Family/Other (units (u nknown) date) Diabetes mellitus unknown) (unknown) (no (unknown) (unknown) Father Diabetes (units (unknown) date) mellitus unknown) (unknown) (no (unknown) (unknown) Height 5 ft 7 in (units (unknown) date) unknown) (unknown) (no (unknown) (unknown) Intake (units (unkno wn) date) unknown) (unknown) (no (unknown) (unknown) [facility] (units (unknown) date) unknown) (unknown) (no (unknown) (unknown) Loc: [facility] (units (unkno wn) date) unknown) (unknown) (no (unknown) (unknown) Medications (units (un known) date) unknown) (unknown) (no (unknown) (unknown) Mother Diabetes (units (unknown) date) mellitus unknown) (unknown) (no (unknown) (unknown) No Known Drug (units ( unknown) date) Allergies Allergy unknown) (Unverified 02/20/23 16:09) (unknown) (no (unknown) (unknown) Oxygen Delivery (units (unknown) date) Method room air unknown) (unknown) (no (unknown) (unknown) PFSH (units (unkno wn) date) unknown) (unknown) (no (unknown) (unknown) Patient: (units (unkno wn) date) Tina Hernandez unknown) MR#: M (unknown) (no (unknown) (unknown) Position Sitting (units (unknown) date) unknown) (unknown) (no (unknown) (unknown) Pulse 87 (units (unkno wn) date) unknown) (unknown) (no (unknown) (unknown) Pulse Oximetry (units (unknown) date) (%) 87 L unknown) (unknown) (no (unknown) (unknown) Pulse Source (units (u nknown) date) Monitor unknown) (unknown) (no (unknown) (unknown) Reason For Visit (units (unknown) date) unknown) (unknown) (no (unknown) (unknown) Signed By: (units (unk nown) date) unknown) (unknown) (no (unknown) (unknown) Sister Diabetes (units (unknown) date) mellitus unknown) (unknown) (no (unknown) (unknown) Smoking Status: (units (unknown) date) Never smoker unknown) (unknown) (no (unknown) (unknown) Social History (units (unknown) date) (Reviewed 02/20/23 unknown) @ 16:16 by Magalys West MA) (unknown) (no (unknown) (unknown) Surgery Office (units (unknown) date) Visit unknown) (unknown) (no (unknown) (unknown) Temp 97.7 F (units (un known) date) unknown) (unknown) (no (unknown) (unknown) Temp Source (units (un known) date) Temporal Artery unknown) Scan (unknown) (no (unknown) (unknown) This note may (units ( unknown) date) have been all or unknown) partially generated using voice recognition (unknown) (no (unknown) (unknown) Tobacco Status (units (unknown) date) unknown) (unknown) (no (unknown) (unknown) Visit Reasons: (units (unknown) date) F/U anal fissure unknown) not healing (unknown) (no (unknown) (unknown) Vitals (units (unkno wn) date) unknown) (unknown) (no (unknown) (unknown) Weight 212 lb (units ( unknown) date) unknown) (unknown) (no (unknown) (unknown) [History (units (unkno wn) date) Confirmed unknown) 02/20/23] (unknown) (no (unknown) (unknown) alcohol intake: (units (unknown) date) never unknown) (unknown) (no (unknown) (unknown) dextroamphetamine (units (unknown) date) -amphetamine 20 mg unknown) tablet (Adderall) 20 mg PO DAILY 10/29/22 (unknown) (no (unknown) (unknown) docusate sodium (units (unknown) date) 50 mg tablet mg PO unknown) 10/29/22 [History Confirmed 02/20/23] (unknown) (no (unknown) (unknown) have occurred. If (units (unknown) date) there are any unknown) questions, please contact the Medical Records (unknown) (no (unknown) (unknown) household (units (unkn own) date) members: spouse unknown) and children (unknown) (no (unknown) (unknown) lives (units (unkno wn) date) independently: Yes unknown) (unknown) (no (unknown) (unknown) marital status: (units (unknown) date) unknown) (unknown) (no (unknown) (unknown) may occur. (units (unk nown) date) Occasional unknown) wrong-word or 'sound-alike' substitutions may have (unknown) (no (unknown) (unknown) methylcellulose (units (unknown) date) (with sugar) oral unknown) powder packet ea PO 10/29/22 [History (unknown) (no (unknown) (unknown) occupational (units (u nknown) date) status: employed unknown) (unknown) (no (unknown) (unknown) occurred due to (units (unknown) date) the inherent unknown) limitations of voice recognition software. Please (unknown) (no (unknown) (unknown) read the note (units ( unknown) date) carefully and unknown) recognize, using context, where these substitutions (unknown) (no (unknown) (unknown) software. (units (unkn own) date) Although every unknown) effort is made to edit content, flame gouger errors Result panel 2 (unknown) (no (unknown) (unknown) (no value) (units (unk nown) date) unknown) (unknown) (no (unknown) (unknown) [id number] (units (unkn own) date) unknown) (unknown) (no (unknown) (unknown) 02/20/23 (units (unkno wn) date) unknown) (unknown) (no (unknown) (unknown) 16:13 (units (unkno wn) date) unknown) (unknown) (no (unknown) (unknown) Age at menarche: (units (unknown) date) 11 unknown) (unknown) (no (unknown) (unknown) Age when first (units (unknown) date) child born?: [birth year] unknown) (unknown) (no (unknown) (unknown) Age/Sex: 38 / F (units (unknown) date) Date of Service: unknown) (unknown) (no (unknown) (unknown) Allergies (units (unkn own) date) unknown) (unknown) (no (unknown) (unknown) [place], [place] (units ( unknown) date) [id number] unknown) (unknown) (no (unknown) (unknown) Attending Dr: (units ( unknown) date) Johnathan Bhakta MD unknown) (unknown) (no (unknown) (unknown) BMI 33.2 (units (unkno wn) date) unknown) (unknown) (no (unknown) (unknown) BP 130/80 (units (unkn own) date) unknown) (unknown) (no (unknown) (unknown) Blood Pressure (units (unknown) date) Location Lt unknown) brachial (unknown) (no (unknown) (unknown) Confirmed (units (unkn own) date) 02/20/23] unknown) (unknown) (no (unknown) (unknown) : 1985 (units (unknown) date) Acct:[id number] unknown) (unknown) (no (unknown) (unknown) Date of Last (units (u nknown) date) Menstrual Period: unknown) 01/31/23 (unknown) (no (unknown) (unknown) Dept at (units (unkno wn) date) . unknown) (unknown) (no (unknown) (unknown) Did you breast (units (unknown) date) feed?: No unknown) (unknown) (no (unknown) (unknown) Documented By: (units (unknown) date) Johnathan Bhakta MD unknown) 02/20/23 1608 (unknown) (no (unknown) (unknown) Draft (units (unkno wn) date) unknown) (unknown) (no (unknown) (unknown) Family History (units (unknown) date) (Reviewed 02/20/23 unknown) @ 16:21 by Magalys West MA) (unknown) (no (unknown) (unknown) Family/Other (units (u nknown) date) Breast cancer unknown) (unknown) (no (unknown) (unknown) Family/Other (units (u nknown) date) Diabetes mellitus unknown) (unknown) (no (unknown) (unknown) Father Diabetes (units (unknown) date) mellitus unknown) (unknown) (no (unknown) (unknown) : 3 (units (unk nown) date) unknown) (unknown) (no (unknown) (unknown) Height 5 ft 7 in (units (unknown) date) unknown) (unknown) (no (unknown) (unknown) Intake (units (unkno wn) date) unknown) (unknown) (no (unknown) (unknown) [facility] (units (unknown) date) unknown) (unknown) (no (unknown) (unknown) Loc: [facility] (units (unkno wn) date) unknown) (unknown) (no (unknown) (unknown) Medications (units (un known) date) unknown) (unknown) (no (unknown) (unknown) Mother Diabetes (units (unknown) date) mellitus unknown) 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 (units (unknown) date) History unknown) (unknown) (no (unknown) (unknown) Oxygen Delivery (units (unknown) date) Method room air unknown) (unknown) (no (unknown) (unknown) PFSH (units (unkno wn) date) unknown) (unknown) (no (unknown) (unknown) Para: 3 (units (unkno wn) date) unknown) (unknown) (no (unknown) (unknown) Patient: (units (unkno wn) date) Tina Hernandez unknown) MR#: M (unknown) (no (unknown) (unknown) Position Sitting (units (unknown) date) unknown) (unknown) (no (unknown) (unknown) Pulse 87 (units (unkno wn) date) unknown) (unknown) (no (unknown) (unknown) Pulse Oximetry (units (unknown) date) (%) 87 L unknown) (unknown) (no (unknown) (unknown) Pulse Source (units (u nknown) date) Monitor unknown) (unknown) (no (unknown) (unknown) Reason For Visit (units (unknown) date) unknown) (unknown) (no (unknown) (unknown) Signed By: (units (unk nown) date) unknown) (unknown) (no (unknown) (unknown) Sister Diabetes (units (unknown) date) mellitus unknown) (unknown) (no (unknown) (unknown) Smoking Status: (units (unknown) date) Never smoker unknown) (unknown) (no (unknown) (unknown) Social History (units (unknown) date) (Reviewed 02/20/23 unknown) @ 16:21 by Magalys West MA) (unknown) (no (unknown) (unknown) Surgery Office (units (unknown) date) Visit unknown) (unknown) (no (unknown) (unknown) Temp 97.7 F (units (un known) date) unknown) (unknown) (no (unknown) (unknown) Temp Source (units (un known) date) Temporal Artery unknown) Scan (unknown) (no (unknown) (unknown) This note may (units ( unknown) date) have been all or unknown) partially generated using voice recognition (unknown) (no (unknown) (unknown) Tobacco Status (units (unknown) date) unknown) (unknown) (no (unknown) (unknown) Visit Reasons: (units (unknown) date) F/U anal fissure unknown) not healing (unknown) (no (unknown) (unknown) Vitals (units (unkno wn) date) unknown) (unknown) (no (unknown) (unknown) Weight 212 lb (units ( unknown) date) unknown) (unknown) (no (unknown) (unknown) [History (units (unkno wn) date) Confirmed unknown) 02/20/23] (unknown) (no (unknown) (unknown) alcohol intake: (units (unknown) date) never unknown) (unknown) (no (unknown) (unknown) dextroamphetamine (units (unknown) date) -amphetamine 20 mg unknown) tablet (Adderall) 20 mg PO DAILY 10/29/22 (unknown) (no (unknown) (unknown) docusate sodium (units (unknown) date) 50 mg tablet mg PO unknown) 10/29/22 [History Confirmed 02/20/23] (unknown) (no (unknown) (unknown) have occurred. If (units (unknown) date) there are any unknown) questions, please contact the Medical Records (unknown) (no (unknown) (unknown) household (units (unkn own) date) members: spouse unknown) and children (unknown) (no (unknown) (unknown) lives (units (unkno wn) date) independently: Yes unknown) (unknown) (no (unknown) (unknown) marital status: (units (unknown) date) unknown) (unknown) (no (unknown) (unknown) may occur. (units (unk nown) date) Occasional unknown) wrong-word or 'sound-alike' substitutions may have (unknown) (no (unknown) (unknown) methylcellulose (units (unknown) date) (with sugar) oral unknown) powder packet ea PO 10/29/22 [History (unknown) (no (unknown) (unknown) occupational (units (u nknown) date) status: employed unknown) (unknown) (no (unknown) (unknown) occurred due to (units (unknown) date) the inherent unknown) limitations of voice recognition software. Please (unknown) (no (unknown) (unknown) read the note (units ( unknown) date) carefully and unknown) recognize, using context, where these substitutions (unknown) (no (unknown) (unknown) software. (units (unkn own) date) Although every unknown) effort is made to edit content, flame gouger errors (unknown) (no (unknown) (unknown) substance use (units ( unknown) date) type: does not use unknown) Result panel 3 (unknown) (no (unknown) (unknown) (no value) (units (unk nown) date) unknown) (unknown) (no (unknown) (unknown) (1) Rectal pain, (units (unknown) date) chronic: unknown) (unknown) (no (unknown) (unknown) [id number] (units (unkn own) date) unknown) (unknown) (no (unknown) (unknown) 02/20/23 1724 (units ( unknown) date) unknown) (unknown) (no (unknown) (unknown) 02/20/23 (units (unkno wn) date) unknown) (unknown) (no (unknown) (unknown) 16:13 (units (unkno wn) date) unknown) (unknown) (no (unknown) (unknown) 38-year-old woman (units (unknown) date) seen in the office unknown) for complaint of rectal pain. 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 (unknown) (no (unknown) (unknown) ABDOMEN: Soft, (units (unknown) date) non-tender, unknown) non-distended (unknown) (no (unknown) (unknown) Age at menarche: (units (unknown) date) 11 unknown) (unknown) (no (unknown) (unknown) Age when first (units (unknown) date) child born?: 19 unknown) (unknown) (no (unknown) (unknown) Age/Sex: 38 / F (units (unknown) date) Date of Service: unknown) (unknown) (no (unknown) (unknown) Allergies (units (unkn own) date) unknown) (unknown) (no (unknown) (unknown) [place], [place] (units ( unknown) date) [id number] unknown) (unknown) (no (unknown) (unknown) Assessment + Plan (units (unknown) date) unknown) (unknown) (no (unknown) (unknown) Attending Dr: (units ( unknown) date) Johnathan Bhakta MD unknown) (unknown) (no (unknown) (unknown) BMI 33.2 (units (unkno wn) date) unknown) (unknown) (no (unknown) (unknown) BP 130/80 (units (unkn own) date) unknown) (unknown) (no (unknown) (unknown) Blood Pressure (units (unknown) date) Location Lt unknown) brachial (unknown) (no (unknown) (unknown) CARDIOVASCULAR: (units (unknown) date) Warm and well unknown) perfused. Regular rate (unknown) (no (unknown) (unknown) CHEST: Rising (units ( unknown) date) symmetrically. No unknown) audible wheezes (unknown) (no (unknown) (unknown) Chief Complaint (units (unknown) date) unknown) (unknown) (no (unknown) (unknown) Chief Complaint: (units (unknown) date) Rectal pain unknown) (unknown) (no (unknown) (unknown) Confirmed (units (unkn own) date) 02/20/23] unknown) (unknown) (no (unknown) (unknown) : 1985 (units (unknown) date) Acct:[id number] unknown) (unknown) (no (unknown) (unknown) Date of Last (units (u nknown) date) Menstrual Period: unknown) 01/31/23 (unknown) (no (unknown) (unknown) Dept at (units (unkno wn) date) . unknown) (unknown) (no (unknown) (unknown) Details: (units (unkno wn) date) unknown) (unknown) (no (unknown) (unknown) Did you breast (units (unknown) date) feed?: No unknown) (unknown) (no (unknown) (unknown) Documented By: (units (unknown) date) Johnathan Bhakta MD unknown) 02/20/23 1608 (unknown) (no (unknown) (unknown) EXTREMITIES: (units (u nknown) date) Normal tone and unknown) without edema. (unknown) (no (unknown) (unknown) Exam Narrative (units (unknown) date) unknown) (unknown) (no (unknown) (unknown) Exam Narrative: (units (unknown) date) unknown) (unknown) (no (unknown) (unknown) Exam (units (unkno wn) date) unknown) (unknown) (no (unknown) (unknown) Examination (units (un known) date) demonstrates no unknown) current anal fissure. I think her rectal pain (unknown) (no (unknown) (unknown) Family History (units (unknown) date) (Reviewed 02/20/23 unknown) @ 17:21 by Johnathan Bhakta MD) (unknown) (no (unknown) (unknown) Family/Other (units (u nknown) date) Breast cancer unknown) (unknown) (no (unknown) (unknown) Family/Other (units (u nknown) date) Diabetes mellitus unknown) (unknown) (no (unknown) (unknown) Father Diabetes (units (unknown) date) mellitus unknown) (unknown) (no (unknown) (unknown) GENERAL: A well (units (unknown) date) nourished, well unknown) developed gentleman appearing stated age, (unknown) (no (unknown) (unknown) : 2 (units (unk nown) date) unknown) (unknown) (no (unknown) (unknown) HEENT: (units (unkno wn) date) Normocephalic, unknown) atraumatic. No scleral icterus (unknown) (no (unknown) (unknown) HPI (units (unkno wn) date) unknown) (unknown) (no (unknown) (unknown) Height 5 ft 7 in (units (unknown) date) unknown) (unknown) (no (unknown) (unknown) Intake (units (unkno wn) date) unknown) (unknown) (no (unknown) (unknown) [facility] (units (unknown) date) unknown) (unknown) (no (unknown) (unknown) Loc: [facility] (units (unkno wn) date) unknown) (unknown) (no (unknown) (unknown) Medications (units (un known) date) unknown) (unknown) (no (unknown) (unknown) Mother Diabetes (units (unknown) date) mellitus unknown) (unknown) (no (unknown) (unknown) NEUROLOGIC: (units (un known) date) Moving all unknown) extremities spontaneously. No gross motor deficits. 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 (units (unknown) date) History unknown) (unknown) (no (unknown) (unknown) Oxygen Delivery (units (unknown) date) Method room air unknown) (unknown) (no (unknown) (unknown) PFSH (units (unkno wn) date) unknown) (unknown) (no (unknown) (unknown) Para: 3 (units (unkno wn) date) unknown) (unknown) (no (unknown) (unknown) Patient: (units (unkno wn) date) Tina Hernandez M unknown) MR#: M (unknown) (no (unknown) (unknown) Plan (units (unkno wn) date) unknown) (unknown) (no (unknown) (unknown) Position Sitting (units (unknown) date) unknown) (unknown) (no (unknown) (unknown) Procedural risks (units (unknown) date) including unknown) bleeding, missed diagnosis, intestinal injury an (unknown) (no (unknown) (unknown) Pulse 87 (units (unkno wn) date) unknown) (unknown) (no (unknown) (unknown) Pulse Oximetry (units (unknown) date) (%) 87 L unknown) (unknown) (no (unknown) (unknown) Pulse Source (units (u nknown) date) Monitor unknown) (unknown) (no (unknown) (unknown) Reason For Visit (units (unknown) date) unknown) (unknown) (no (unknown) (unknown) Rectum-multiple (units (unknown) date) anal skin tags. No unknown) fissure is identified. No perianal (unknown) (no (unknown) (unknown) Signed By: (units (unk nown) date) <Electronically unknown) signed by Johnathan Bhakta MD> (unknown) (no (unknown) (unknown) Signed (units (unkno wn) date) unknown) (unknown) (no (unknown) (unknown) Sister Diabetes (units (unknown) date) mellitus unknown) (unknown) (no (unknown) (unknown) Smoking Status: (units (unknown) date) Never smoker unknown) (unknown) (no (unknown) (unknown) Social History (units (unknown) date) (Reviewed 02/20/23 unknown) @ 17:21 by Johnathan Bhakta MD) (unknown) (no (unknown) (unknown) Status: Acute (units ( unknown) date) unknown) (unknown) (no (unknown) (unknown) Surgery Office (units (unknown) date) Visit unknown) (unknown) (no (unknown) (unknown) Temp 97.7 F (units (un known) date) unknown) (unknown) (no (unknown) (unknown) Temp Source (units (un known) date) Temporal Artery unknown) Scan (unknown) (no (unknown) (unknown) This note may (units ( unknown) date) have been all or unknown) partially generated using voice recognition (unknown) (no (unknown) (unknown) Time Coding (units (un known) date) Minutes Spent: unknown) (must be on same date of service/appointmen t) (unknown) (no (unknown) (unknown) Time Spent (units (unk nown) date) unknown) (unknown) (no (unknown) (unknown) Tobacco Status (units (unknown) date) unknown) (unknown) (no (unknown) (unknown) Total Time: 30 (units (unknown) date) unknown) (unknown) (no (unknown) (unknown) Visit Reasons: (units (unknown) date) F/U anal fissure unknown) not healing (unknown) (no (unknown) (unknown) Vitals (units (unkno wn) date) unknown) (unknown) (no (unknown) (unknown) Weight 212 lb (units ( unknown) date) unknown) (unknown) (no (unknown) (unknown) [History (units (unkno wn) date) Confirmed unknown) 02/20/23] (unknown) (no (unknown) (unknown) agreement with (units (unknown) date) this plan. unknown) (unknown) (no (unknown) (unknown) alcohol intake: (units (unknown) date) never unknown) (unknown) (no (unknown) (unknown) anesthetic (units (unk nown) date) complication were unknown) discussed. Questions have been answered she is in (unknown) (no (unknown) (unknown) dextroamphetamine (units (unknown) date) -amphetamine 20 mg unknown) tablet (Adderall) 20 mg PO DAILY 10/29/22 (unknown) (no (unknown) (unknown) docusate sodium (units (unknown) date) 50 mg tablet mg PO unknown) 10/29/22 [History Confirmed 02/20/23] (unknown) (no (unknown) (unknown) fluctuance. (units (un known) date) unknown) (unknown) (no (unknown) (unknown) have occurred. If (units (unknown) date) there are any unknown) questions, please contact the Medical Records (unknown) (no (unknown) (unknown) household (units (unkn own) date) members: spouse unknown) and children (unknown) (no (unknown) (unknown) lives (units (unkno wn) date) independently: Yes unknown) (unknown) (no (unknown) (unknown) malignant (units (unkn own) date) disease. Overview unknown) of the procedure was discussed with the patient. (unknown) (no (unknown) (unknown) marital status: (units (unknown) date) unknown) (unknown) (no (unknown) (unknown) may occur. (units (unk nown) date) Occasional unknown) wrong-word or 'sound-alike' substitutions may have (unknown) (no (unknown) (unknown) methylcellulose (units (unknown) date) (with sugar) oral unknown) powder packet ea PO 10/29/22 [History (unknown) (no (unknown) (unknown) movements no (units (u nknown) date) bleeding. She has unknown) increased her fiber and water intake and is (unknown) (no (unknown) (unknown) occupational (units (u nknown) date) status: employed unknown) (unknown) (no (unknown) (unknown) occurred due to (units (unknown) date) the inherent unknown) limitations of voice recognition software. Please (unknown) (no (unknown) (unknown) read the note (units ( unknown) date) carefully and unknown) recognize, using context, where these substitutions (unknown) (no (unknown) (unknown) resting (units (unkno wn) date) comfortably, in no unknown) acute distress. (unknown) (no (unknown) (unknown) significantly (units ( unknown) date) improve and unknown) reports that she has ongoing rectal pain with bowel (unknown) (no (unknown) (unknown) software. (units (unkn own) date) Although every unknown) effort is made to edit content, flame gouger errors (unknown) (no (unknown) (unknown) substance use (units ( unknown) date) type: does not use unknown) (unknown) (no (unknown) (unknown) this office (units (un known) date) August 2022 which unknown) point she had a posterior anal fissure and she (unknown) (no (unknown) (unknown) variety of (units (unk nown) date) conditions which unknown) can cause rectal pain including both benign and (unknown) (no (unknown) (unknown) warrants further (units (unknown) date) evaluation with unknown) colonoscopy. I explained to her that the (unknown) (no (unknown) (unknown) was begun on (units (u nknown) date) nifedipine fiber unknown) supplementation and stool softeners. She did not (unknown) (no (unknown) (unknown) without (units (unkno wn) date) constipation. She unknown) is never had prior colonoscopy. Social History date description facility 2023-02-20 00:00 Never smoked tobacco ([facility] Vital Signs date measurement value units 2023-02-20 00:00 BMI 33.2 kg/m2 2023-02-20 00:00 BP_diastolic 80 mmHg 2023-02-20 00:00 BP_systolic 130 mmHg 2023-02-20 00:00 heart_rate 87 /min 2023-02-20 00:00 height_metric 170.18 cm 2023-02-20 00:00 height_standard 67 in 2023-02-20 00:00 o2_saturation 87 % 2023-02-20 00:00 temperature_metric 36.5 C 2023-02-20 00:00 temperature_standard 97.7 F 2023-02-20 00:00 weight_metric 96.16 kg 2023-02-20 00:00 weight_standard 212 lb
[2023-03-07] MEDS ORDERED: traMADol 50 MG TABLET PO STA (02:32)
--- NOTE | 2023-03-07 02:34 | ED Physician Documentation ---
History of Present Illness - Stated complaint Stated Complaint: FEMALE - Chief complaint Chief Complaint: General - History obtained from History obtained from: Patient - Additonal information Additional information: Patient is a 38-year-old presenting for evaluation of rectal pain and that she states is from an anal fissure that started last night after hard bowel movement. 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 She states that she had recently come off of using MiraLAX as it was upsetting her stomach and had a hard bowel movement last night after which time she has been having the pain in the rectum. She states that the only thing that helps her is tramadol. She did apply diaper cream to the rectum and says that also slightly helps.She denies blood in her stools. She denies abdominal pain. She denies concerns for . 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 : None HEENT: None Psych: None Musculoskeletal: None, Chronic back pain Derm: None - Past Surgical History Past Surgical History: No - Present Medications Home Medications: Ambulatory Orders Medication Instructions Recorded Confirmed Hydrocortisone/Pramoxine 1 applic RC BID #10 gm 05/26/22 11/09/22 [Proctofoam-Hc Foam] Docusate Sodium 100Mg Capsule 100 mg PO DAILY PRN 11/09/22 11/09/22 [Colace 100Mg Capsule] Nitroglycerin [Rectiv] 1 appful RC BID #60 gm 11/09/22 polyethylene glycoL 3350 [Miralax] 17 gm PO DAILY PRN 11/09/22 11/09/22 traMADol [Ultram] 0.5 - 1 tab PO ONCE PRN #10 tablet 11/09/22 traMADol [Ultram] 50 - 100 mg PO Q6H PRN #20 tablet 01/14/23 traMADol [Ultram] 50 mg PO Q6HR #10 tab 03/07/23 - Allergies Allergies/Adverse Reactions: Allergies Allergy/AdvReac Type Severity Reaction Status Date / Time No Known Drug Allergies Allergy Verified 03/07/23 02:13 - Social History Does the pt smoke?: No Smoking Status: Never smoker Does the pt drink ETOH?: No Does the pt have substance abuse?: No - Immunizations Immunizations are current?: Yes Immunizations: TDAP current <10years - POLST Patient has POLST: No PD ED PE NORMAL - General General: Alert and oriented X 3, No acute distress, Well developed/nourished - HEENT HEENT: Atraumatic - Neck Neck: Supple, no meningeal sign - Cardiac Cardiac: RRR - Respiratory Respiratory: No respiratory distress, Clear bilaterally - Abdomen Abdomen: Normal bowel sounds, Soft, Non tender, Non distended - Rectal Rectal: Other (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 Patient has thick diaper cream applied to the rectum.Difficult to visualize for a fissure but reports tenderness On external exam, has nonthrombosed hemorrhoids. Patient declined digital exam.) - Derm Derm: Warm and dry Results - Vitals Vitals: Vital Signs - 24 hr 03/07/23 03/07/23 02:09 02:41 Temperature 36.1 C L Heart Rate 66 65 Respiratory 16 18 Rate Blood Pressure 129/61 122/60 O2 Saturation 98 100 Oxygen O2 Source Room air PD Medical Decision Making - ED course ED course: Patient presenting for evaluation of rectal pain that she believes is due to to an anal fissure as she has had these several times in the past and this feels the same. Her exam is limited as she had applied a thick coat of diaper cream into the rectum and declined digital exam.Her abdominal exam is otherwise benign.She does have scheduled follow-up with the surgeon for colonoscopy as to determine why she is developing these fissures.We will give a small amount of pain medication as she has had this in the past for these episodes when presenting to the emergency department. Patient counseled on concerning symptoms to return for. Departure - Departure Disposition: 01 Home, Self Care Clinical Impression: Rectal fissure Condition: Stable Instructions: ED Fissure Anal Ch Prescriptions: traMADol [Ultram] 50 mg PO Q6HR #10 tab Comments: Please follow-up with your general surgeon for your scheduled colonoscopy. I have sent a small prescription of pain medication to [facility] in [place]. I am prescribing a short course of narcotic pain medication for you. These are potentially dangerous and addictive medications that should be used carefully. These medications may constipate you. Take an oyuc-wnl-ughmuwi stool softener (docusate) twice daily with plenty of water while taking these medications. If you go 24 hours without a bowel movement, take kooh-cuw-csvipou miralax, per package instructions. Do not drink or drive while taking these medications. If you received narcotic or sedating medications while in the emergency department, do not drive for 24 hours. Store this medication in a safe, secure place and out of reach of children. It is a violation of federal law to give or sell this medication to another person or to use in a manner other than prescribed. The ED will not refill narcotic prescriptions, including prescriptions lost or stolen. To dispose of unwanted medications: 1. [facility] [address] in [place] has a medication drop box. They accept prescription medications (in pill form) Friday through Friday 9:00 a.m. to 5:00 p.m. 2. The [facility] Department accepts prescription medications (in pill form only) for disposal year round. Call for more information. 3. Contact the [facility] for the next [facility] sponsored prescription drug collection event. , [phone], or [phone]; Note that many narcotic pain relievers also contain Tylenol/acetaminophen. Please ensure that your total dose of acetaminophen from all sources does not exceed 3 g (3000 mg) per day. Discharge Date/Time: 03/07/23 02:41
[2023-03-07 02:41] VITALS: BP 122/60
== END 2023-03-07 02:41 | disposition home or self-care (01) ==
LOC: ED 02:06
DX: K60.2 Anal fissure, unspecified (principal)
CPT/HCPCS: 99282; 99283; A9270

== ENCOUNTER 2023-07-03 09:25 | Emergency (ER) | payer OTHER ==
--- NOTE | 2023-07-03 09:44 | ED Physician Documentation ---
PD HPI HEENT - Stated complaint Stated Complaint: TOOTH PX - Chief complaint Chief Complaint: General - History obtained from History obtained from: Patient - History of Present Illness Timing - onset: How many days ago (2-3) Timing - duration: Days (2-3) Timing - details: Gradual onset Location: Tooth (left lower) Worsens: Temperatures, Other (biting) Associated symptoms: No: Fever, Congestion, Facial swelling Review of Systems Constitutional: denies: Fever, Chills Throat: reports: Dental pain / toothache PD PAST MEDICAL HISTORY - Past Medical History Cardiovascular: None Respiratory: None Neuro: None Endocrine/Autoimmune: None GI: Hemorrhoids, 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 : None HEENT: None Psych: None Musculoskeletal: None, Chronic back pain Derm: None - Past Surgical History Past Surgical History: No - Present Medications Home Medications: Ambulatory Orders Medication Instructions Recorded Confirmed Hydrocortisone/Pramoxine 1 applic RC BID #10 gm 05/26/22 07/03/23 [Proctofoam-Hc Foam] Chlorhexidine Gluconate [Peridex] 15 ml MM TID #118 ml 07/03/23 Norethindrone-E.estradiol-Iron 1 each PO DAILY 07/03/23 07/03/23 [Junel Fe 24 Tablet] Ondansetron Odt [Zofran] 4 mg TL Q6H PRN #10 tablet 07/03/23 clindamycin HCL [Clindamycin HCl] 300 mg PO TID 7 Days #20 cap 07/03/23 - Allergies Allergies/Adverse Reactions: Allergies Allergy/AdvReac Type Severity Reaction Status Date / Time No Known Drug Allergies Allergy Verified 07/03/23 10:10 - Social History Does the pt smoke?: No Smoking Status: Never smoker Does the pt drink ETOH?: No Does the pt have substance abuse?: No - Immunizations Immunizations are current?: Yes Immunizations: TDAP current <10years - POLST Patient has POLST: No PD ED PE NORMAL - Vitals Vital signs reviewed: Yes - General General: Alert and oriented X 3, No acute distress, Well developed/nourished - HEENT HEENT: Other (left lower premolar with caries, gum swelling without fluctuance, tenderness, swelling. ). No: Dentition benign - Neck Neck: Supple, no meningeal sign, No adenopathy Results - Vitals Vitals: Vital Signs - 24 hr 07/03/23 09:31 Temperature 37.1 C Heart Rate 81 Respiratory 18 Rate Blood Pressure 139/78 H O2 Saturation 100 Oxygen O2 Source Room air PD Medical Decision Making - ED course Complexity details: considered differential (history of dental caries and has had cental infections in the past. Current tooth infected has had decay for awhile. Tried to make dental appt but long wait time. ), d/w patient Departure - Departure Disposition: 01 Home, Self Care Clinical Impression: Infected dental caries Condition: Stable Record reviewed to determine appropriate education?: Yes Follow-Up: [facility] [Provider Group] Prescriptions: clindamycin HCL [Clindamycin HCl] 300 mg PO TID 7 Days #20 cap Chlorhexidine Gluconate [Peridex] 15 ml MM TID #118 ml Ondansetron Odt [Zofran] 4 mg TL Q6H PRN #10 tablet PRN Reason: Nausea / Vomiting Comments: Cleanse and rinse the infected tooth area and mouth in general with antiseptic rinse twice daily as prescribed. Clindamycin antibiotic 3 times daily for the next 5 to 7 days to help with the current infection. Ondansetron/Zofran if needed for nausea. Continue with some ibuprofen 400 to 600 mg twice daily to 3 times daily with food to help with pain and inflammation. Add Tylenol 500 to 650 mg every 4-6 hours if needed as well. This should improve well over the next couple of days and be resolved in 3 to 5 days. Follow-up with dental at their earliest appointment available for more definitive care of the cavities so it does not get reinfected. I sent your prescriptions to the [facility]. Forms: PCP List Discharge Date/Time: 07/03/23 10:33
[2023-07-03 09:45] VITALS: BP 139/78; O2SAT 100
--- OUTSIDE RECORDS SUMMARY | 2023-07-03 10:14 | EXTERNAL MEDICAL SUMMARY RPT | Continuity of Care Document ---
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) [facility] 2023-06-23 09:15 Gastro-esophageal reflux diseas e without esophagitis [facility] 2023-06-23 09:15 Unspecified abdominal pain [facility] 2023-06-23 09:15 [facility] 2023-06-23 09:34 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) [facility] 2023-06-23 09:34 Gastro-esophageal reflux diseas e without esophagitis [facility] 2023-06-23 09:34 Unspecified abdominal pain [facility] 2023-06-23 09:34 [facility] 2023-06-23 11:25 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) [facility] 2023-06-23 11:25 Gastro-esophageal reflux diseas e without esophagitis [facility] 2023-06-23 11:25 Unspecified abdominal pain [facility] 2023-06-23 11:25 [facility] 2023-06-23 11:36 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) [facility] 2023-06-23 11:36 Gastro-esophageal reflux diseas e without esophagitis [facility] 2023-06-23 11:36 Unspecified abdominal pain [facility] 2023-06-23 11:36 [facility] 2023-06-23 11:58 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8 kg/m2 2023-06-23 00:00 BP_diastolic 72 mmHg 2023-06-23 00:00 BP_systolic 122 mmHg 2023-06-23 00:00 heart_rate 72 /min 2023-06-23 00:00 height_metric 170.18 cm 2023-06-23 00:00 height_standard 67 in 2023-06-23 00:00 o2_saturation 98 % 2023-06-23 00:00 respiration_rate 16 /min 2023-06-23 00:00 temperature_metric 36.28 C 2023-06-23 00:00 temperature_standard 97.3 F 2023-06-23 00:00 weight_metric 95.25 kg 2023-06-23 00:00 weight_standard 209.99 lb
[2023-07-03] MEDS ORDERED: CLINDAMYCIN 150 MG CAPSULE PO STA (10:23)
[2023-07-03] MEDS ORDERED: ACETAMINOPHEN 325 MG TABLET PO STA (10:23)
== END 2023-07-03 10:33 | disposition home or self-care (01) ==
LOC: ED 09:25
DX: K02.9 Dental caries, unspecified (principal)
CPT/HCPCS: 99282; 99283; A9270

== ENCOUNTER 2023-09-18 11:11 | Emergency (ER) | payer OTHER ==
[2023-09-18 11:18] VITALS: BP 147/87; O2SAT 99
[2023-09-18] MEDS ORDERED: KETOROLAC 30 MG/ML VIAL IM STA (11:42)
--- NOTE | 2023-09-18 11:45 | ED Physician Documentation ---
PD HPI HEENT - Stated complaint Stated Complaint: RT SIDE MOUTH PX - Chief complaint Chief Complaint: Heent - History obtained from History obtained from: Patient - Additional information Additional information: 38-year-old female presents for dental infection. She has known dental caries, she is in talks with a dentist to get her teeth pulled and replaced, however she states it is $30,000 and this has been delayed due to financial costs. Reports pain in her right upper gums. Denies drooling, difficulty swallowing, fevers, headaches, other complaints at this time. Has been taking Motrin at home with minimal relief of pain.Recently completed antibiotic treatment for H. pylori Review of Systems Constitutional: denies: Fever, Chills Throat: reports: Dental pain / toothache. 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 HEENT: None Psych: None Musculoskeletal: None, Chronic back pain Derm: None - Past Surgical History Past Surgical History: No - Present Medications Home Medications: Ambulatory Orders Medication Instructions Recorded Confirmed Norethindrone-E.estradiol-Iron 1 each PO DAILY 07/03/23 09/18/23 [Junel Fe 24 Tablet] Clindamycin [Cleocin] 450 mg PO TID 7 Days #63 cap 09/18/23 FLUoxetine [PROzac] 10 mg PO DAILY 09/18/23 09/18/23 - Allergies Allergies/Adverse Reactions: Allergies Allergy/AdvReac Type Severity Reaction Status Date / Time No Known Drug Allergies Allergy Verified 09/18/23 11:16 - Social History Does the pt smoke?: No Smoking Status: Never smoker Does the pt drink ETOH?: No Does the pt have substance abuse?: No - Immunizations Immunizations are current?: Yes Immunizations: TDAP current <10years - POLST Patient has POLST: No PD ED PE NORMAL - Vitals Vital signs reviewed: Yes - General General: Alert and oriented X 3, No acute distress, Well developed/nourished - HEENT HEENT: Atraumatic, PERRL, EOMI, Moist mucous membranes, Other (Extensive dental caries, broken teeth right maxilla) - Neck Neck: Supple, no meningeal sign - Cardiac Cardiac: RRR - Respiratory Respiratory: No respiratory distress, Clear bilaterally - Abdomen Abdomen: Soft, Non distended - Derm Derm: Normal color, Warm and dry, No rash - Neuro Neuro: Alert and oriented X 3, 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 Recently completed amoxicillin and unknown other medication for H. pylori. Airway intact, no trismus, no pooling of secretions. Patient counseled on the importance of dental follow-up. She was given a Toradol shot for pain and will be discharged with clindamycin. Instructed to take medications as prescribed and to add tylenol to pain regimen for additional relief. Departure - Departure Disposition: 01 Home, Self Care Clinical Impression: Pain due to dental caries, Dental infection Condition: Stable Instructions: ED Tooth Pain Prescriptions: Clindamycin [Cleocin] 450 mg PO TID 7 Days #63 cap Comments: Take all antibiotics as prescribed. Use the Peridex mouthwash to help prevent additional infection. Make sure that you follow-up with a dentist Forms: PCP List
== END 2023-09-18 12:07 | disposition home or self-care (01) ==
LOC: ED 11:11
DX: K04.7 Periapical abscess without sinus (principal); K02.9 Dental caries, unspecified; Z79.3 Long term (current) use of hormonal contraceptives
CPT/HCPCS: 96372; 99283

== ENCOUNTER 2023-12-06 15:27 | Emergency (ER) | payer OTHER ==
[2023-12-06 15:31] VITALS: BP 160/90; O2SAT 98
--- NOTE | 2023-12-06 16:14 | ED Physician Documentation ---
PD HPI LOWER EXT INJURY - Stated complaint Stated Complaint: LT FOOT INJ - Chief complaint Chief Complaint: Trauma Ext - History obtained from History obtained from: Patient - History of Present Illness PD HPI LOW EXT INJURY LOCATION: Left, Foot Pain level max: 6 Pain level now: 5 Improved by: Rest Worsened by: Moving Associated symptoms: Swelling, Discolored (Bruising). No: Weakness, Numbness, Tingling Contributing factors: No: Anticoagulated - Additional information Additional information: L foot pain s/p shelf falling on the dorsum of the foot. Swelling and bruising present. No numbness or tingling. Worse with walking, better with rest. Not on blood thinners. Patient denies any other injuries. 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 HEENT: None Psych: Depression, Anxiety Musculoskeletal: None, Chronic back pain Derm: None - Past Surgical History Past Surgical History: No - Present Medications Home Medications: Ambulatory Orders Medication Instructions Recorded Confirmed Norethindrone-E.estradiol-Iron 1 each PO DAILY 07/03/23 09/18/23 [ Tablet] Clindamycin [Cleocin] 450 mg PO TID 7 Days #63 cap 09/18/23 FLUoxetine [PROzac] 10 mg PO DAILY 09/18/23 09/18/23 traMADol [Ultram] 50 - 100 mg PO Q6H PRN #14 tablet 12/06/23 - Allergies Allergies/Adverse Reactions: Allergies Allergy/AdvReac Type Severity Reaction Status Date / Time No Known Drug Allergies Allergy Verified 12/06/23 15:29 - Social History Does the pt smoke?: No Smoking Status: Never smoker Does the pt drink ETOH?: No Does the pt have substance abuse?: No - Immunizations Immunizations are current?: Yes Immunizations: TDAP current <10years - POLST Patient has POLST: No PD ED PE NORMAL - Vitals Vital signs reviewed: Yes - General General: Alert and oriented X 3, No acute distress - HEENT HEENT: Moist mucous membranes - Derm Derm: Warm and dry - Extremities Extremities: Other (L foot - ecchymosis and swelling to the dorsum of the foot, distal foot, NVI. ) - Neuro Neuro: Alert and oriented X 3 Results - Vitals Vitals: Vital Signs - 24 hr 12/06/23 15:29 Temperature 36.8 C Heart Rate 100 Respiratory 16 Rate Blood Pressure 160/90 H O2 Saturation 98 Oxygen O2 Source Room air - Rads (name of study) L foot xray Relevant Findings:: Final report received, See rad report PD Medical Decision Making - ED course Complexity details: reviewed results, considered differential, d/w patient ED course: 38-year-old female with a contusion of the dorsum of the left foot. No acute findings on x-ray. Patient request crutches. She was given crutches here. She declines pain medication here but request Toradol for home. Prescription was sent to [facility]. Neurovascular intact. Patient counseled regarding signs and symptoms for which I believe and urgent re-evaluation would be necessary. Patient with good understanding of and agreement to plan and is comfortable going home at this time This document was made in part using voice recognition software. While efforts are made to proofread this document, sound alike and grammatical errors may occur. Departure - Departure Disposition: 01 Home, Self Care Clinical Impression: Foot contusion Qualifiers: Encounter type: initial encounter Laterality: left Qualified Code(s): S90.32XA - Contusion of left foot, initial encounter Condition: Good Instructions: ED Contusion Foot Follow-Up: doctor [place] in 1 week [Other] Prescriptions: traMADol [Ultram] 50 - 100 mg PO Q6H PRN #14 tablet PRN Reason: back pain Comments: Your prescriptions are sent to [facility] in [place]. Your x-ray does not show any acute fractures today. You can use the medication as needed for pain, ice, elevate as well. Please return if you worsen. I am prescribing a short course of narcotic pain medication for you. These are potentially dangerous and addictive medications that should be used carefully. These medications may constipate you. Take an gtgy-uts-ujmqckg stool softener (docusate) twice daily with plenty of water while taking these medications. If y ou go 24 hours without a bowel movement, take knhn-oxg-ccbrzru miralax, per package instructions. Do not drink or drive while taking these medications. If you received narcotic or sedating medications while in the emergency department, do not drive for 24 hours. Store this medication in a safe, secure place and out of reach of children. It is a violation of federal law to give or sell this medication to another person or to use in a manner other than prescribed. The ED will not refill narcotic prescriptions, including prescriptions lost or stolen. To dispose of unwanted medications: 1. [facility] [address] in [place] has a medication drop box. They accept prescription medications (in pill form) Friday through Friday 9:00 a.m. to 5:00 p.m. 2. The [facility] Department accepts prescription medications (in pill form only) for disposal year round. Call for more information. 3. Contact the [facility] for the next [facility] sponsored prescription drug collection event. , [phone], or [phone]; Forms: PCP List
--- NOTE | 2023-12-06 16:29 | XRAY Report ---
PROCEDURE: Foot 3+V LT INDICATIONS: Trauma TECHNIQUE: 3 views of the foot were acquired. COMPARISON: None. FINDINGS: Bones: No fractures or dislocations. No suspicious bony lesions. Accessory os navicularis with ps eudoarticulation. Soft tissues: No suspicious soft tissue calcifications or masses. IMPRESSION: No acute bony abnormality. Reviewed by: Rayo Jackson MD on 12/06/2023 3:28 PM [facility] Approved by: Rayo Jackson MD on 12/06/2023 3:28 PM [facility] Station ID: [id number]
== END 2023-12-06 16:48 | disposition home or self-care (01) ==
LOC: ED 15:27
DX: S90.32XA Contusion of left foot, initial encounter (principal); W20.8XXA Other cause of strike by thrown, projected or falling object, initial encounter
CPT/HCPCS: 99283

== ENCOUNTER 2024-02-07 10:14 | Outpatient (CLI) | payer OTHER ==
--- NOTE | 2024-02-09 14:06 | MRI Report ---
PROCEDURE: Foot LT WO INDICATIONS: L FOOT PAIN TECHNIQUE: Noncontrast sagittal T1 spin echo and T2 fast spin echo with fat saturation, long-axis T1 spin echo a nd T2 fast spin echo with fat saturation, short-axis proton density fast spin echo and T2 fast spin e cho with fat saturation through the forefoot. COMPARISON: None. FINDINGS: Image quality: Excellent. Bones and joints: No bone marrow contusions or metatarsal stress fractures. The sesamoid bones appe ar in expected positions, without internal edema. No metatarsophalangeal joint degeneration. No int raosseous lesions. Soft tissues: The visualized plantar foot muscles demonstrate normal signal and bulk. Visualized fl exor and extensor tendons appear intact, without tenosynovitis. No soft tissue ganglion cysts or bur dalia fluid collections. Sagittal images demonstrate thickened plantar plate of fourth and fifth MTP j oints with suggestion of low-grade partial-thickness tear involving plantar plate of fifth MTP joint near its distal insertion. IMPRESSION: 1. No marrow edema. No fracture or dislocation. No metatarsal stress fractures. 2. Suggestion of low-grade partial-thickness involving plantar plate of fifth MTP joint near its dist al insertion. Mildly thickened the plantar plate of fourth MTP joint concerning for low-grade sprain. 3. Extensor and flexor tendons are grossly intact. Lisfranc ligament is intact. Reviewed by: Selwyn Choi MD on 02/09/2024 2:05 PM PDT Approved by: Selwyn Choi MD on 02/09/2024 2:05 PM PDT Station ID: [id number]
== END 2024-02-07 10:15 | disposition home or self-care (01) ==
LOC: DI 10:14
PROVIDERS: ATTEND Nurse Practitioner Family
DX: M79.672 Pain in left foot (principal)